=== PATIENT | male | born 1990 | race Hispanic/Latino ===

== ENCOUNTER 2019-03-10 02:51 | Emergency (ER) | payer SELFPAY ==
[2019-03-10 03:05] LABS: #Basophils 0.1 thou/uL (0.0-0.2); #Lymphocytes 1.7 thou/uL (1.20-3.40); #Monocytes 0.4 thou/uL (0.11-0.59); #Neutrophils 3.6 thou/uL (1.40-6.50); %Eosinophils 0.4 % (0.0-10.0); %Monocytes 7.1 % (0.0-10.0); %Neutrophils 62.4 % (42.0-75.0); Hemoglobin 15.8 g/dL (14.0-18.0); Mean Corpuscular HGB CONC 34.8 g/dL (32.0-36.0); Mean Corpuscular Hemoglobin 30.9 pg (27.0-31.0); Mean Corpuscular Volume 88.7 fL (78.0-98.0); Mean Platelet Volume 8.5 fL (7.4-10.4); Platelet Count 267 thou/uL (130-400); RBC Distribution Width 11.8 % (11.5-14.5); Red Blood Cell (RBC) Count 5.12 mill/uL (4.70-6.10); White Blood Cell (WBC) Count 5.8 thou/uL (4.8-10.8)
[2019-03-10] MEDS ORDERED: Ondansetron PF 4 MG/2 ML Vial ONE (03:09)
[2019-03-10 03:21] LABS: ALT (SGPT) 338 U/L (8-55); AST (SGOT) 596 U/L (5-34); Albumin 4.4 g/dL (3.5-5.0); Alkaline Phosphatase 130 U/L (40-150); Anion Gap 17 mmol/L (10-20); BUN (Urea Nitrogen) 5 mg/dL (8.9-20.6); Bilirubin, Total 0.8 mg/dL (0.2-1.2); Calc. Creatinine Clearance 0 mL/min (70-130); Calcium 9.2 mg/dL (7.8-10.44); Carbon Dioxide 25 mmol/L (22-29); Chloride 99 mmol/L (98-107); Estimated GFR-MDRD Greater than 90; Globulin 3.8 g/dL (2.4-3.5); Glucose 152 mg/dL (70-105); Lipase 46 U/L (8-78); Protein, Total 8.2 g/dL (6.0-8.3); Sodium 138 mmol/L (136-145)
[2019-03-10 03:37] LABS: Bacteria/HPF None Seen HPF (None Seen); Bilirubin Negative (Negative); Blood, Urine Trace (Negative); Clarity Clear (Clear); Glucose, Urine (Dipstick) Normal (Negative); Leukocyte Negative Leu/uL (Negative); Nitrite Negative (Negative); Protein, Urine (Dipstick) 20 mg/dL (Neg-Trace); RBC/HPF None Seen HPF (0-3); Squamous Epithelial None Seen HPF (0-3); Urobilinogen Normal mg/dL (Less than 2); WBC/HPF 0-3 HPF (0-3)
[2019-03-10] MEDS ORDERED: Potassium Chloride 20 MEQ TAB ONE (04:00)
== END 2019-03-10 04:10 | disposition home or self-care (01) ==
LOC: ERS 02:51
DX: F10.10 Alcohol abuse, uncomplicated (principal); R11.2 Nausea with vomiting, unspecified
CPT/HCPCS: 36415; 80053; 81003; 81015; 83690; 85025; 96361; 96374; J2405

== ENCOUNTER 2019-04-23 06:40 | Inpatient (IN) | payer MEDICAID, SELFPAY ==
[2019-04-23] MEDS ORDERED: Succinylcholine Chloride 20 MG/ML 10 ml SYRINGE FS ONE (06:58)
[2019-04-23] MEDS ORDERED: PROPOFOL 20 ML ONE (07:00)
[2019-04-23 07:05] LABS: PTT 29.3 SEC (22.9-36.1); Prothrombin Time 13.1 SEC (12.0-14.7)
[2019-04-23] MEDS ORDERED: Propofol 1,000 MG/100 ML VIAL IV ONE (07:05)
[2019-04-23 07:09] LABS: #Eosinphils 0.1 thou/uL (0.0-0.7); #Lymphocytes 1.8 thou/uL (1.20-3.40); #Neutrophils 6.7 thou/uL (1.40-6.50); %Basophils 0.4 % (0.0-1.0); %Eosinophils 0.8 % (0.0-10.0); %Lymphocytes 18.9 % (21.0-51.0); %Neutrophils 69.8 % (42.0-75.0); Hemoglobin 12.6 g/dL (14.0-18.0); Mean Corpuscular HGB CONC 34.6 g/dL (32.0-36.0); Mean Corpuscular Hemoglobin 31.6 pg (27.0-31.0); Mean Corpuscular Volume 91.4 fL (78.0-98.0); Mean Platelet Volume 9.5 fL (7.4-10.4); Platelet Count 125 thou/uL (130-400); RBC Distribution Width 13.7 % (11.5-14.5); White Blood Cell (WBC) Count 9.5 thou/uL (4.8-10.8)
[2019-04-23] MEDS ORDERED: Fentanyl 100 MCG/2 ML VIAL ONE ×5 (07:13→16:47)
[2019-04-23] MEDS ORDERED: Midazolam HCl 5 mg/ml Vial ONE ×2 (07:14→07:21)
[2019-04-23 07:20] LABS: ALT (SGPT) 258 U/L (8-55); AST (SGOT) 303 U/L (5-34); Acetaminophen Less than 6.0 mcg/mL (10.0-30.0); Albumin 3.3 g/dL (3.5-5.0); Alcohol Less than 10 mg/dL (Less than 10); Alkaline Phosphatase 210 U/L (40-150); Anion Gap 19 mmol/L (10-20); BUN (Urea Nitrogen) 7 mg/dL (8.9-20.6); Bilirubin, Total 9.4 mg/dL (0.2-1.2); Calc. Creatinine Clearance 0 mL/min (70-130); Calcium 8.9 mg/dL (7.8-10.44); Carbon Dioxide 21 mmol/L (22-29); Chloride 87 mmol/L (98-107); Estimated GFR-MDRD 84; Globulin 2.9 g/dL (2.4-3.5); Glucose 203 mg/dL (70-105); Protein, Total 6.2 g/dL (6.0-8.3); Salicylate Less than 8.0 mg/dL (15.0-30.0); Sodium 125 mmol/L (136-145)
[2019-04-23 07:24] LABS: Potassium 2.2 mmol/L (3.5-5.1)
[2019-04-23] MEDS ORDERED: Adacel (T-DAP) 0.5 ML SYRINGE ONE (07:26)
[2019-04-23] MEDS ORDERED: Potassium Chloride 40 MEQ in Sodium Chloride 0.9% 250 ML 250 ML IVPB SCH (07:45)
[2019-04-23 08:08] LABS: Alcohol Less than 10 mg/dL (Less than 10); Magnesium 2.1 mg/dL (1.6-2.6)
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
[2019-04-23] MEDS ORDERED: PHENYLEPHRINE-NS 100 MCG/ML 10 ML SYRINGE ONE ×4 (08:46→16:47)
[2019-04-23] MEDS ORDERED: Dexamethasone 20 MG/5 ML VIAL ONE (08:46)
[2019-04-23] MEDS ORDERED: Ondansetron PF 4 MG/2 ML Vial ONE (08:46)
[2019-04-23] MEDS ORDERED: ePHEDrine 50 MG/ML VIAL ONE (08:46)
[2019-04-23] MEDS ORDERED: PROPOFOL 200 MG/20 ML VIAL ONE (08:46)
[2019-04-23] MEDS ORDERED: Calcium Chloride 1 GM/10 ML Abboject SYRINGE ONE ×4 (08:46→16:00)
[2019-04-23] MEDS ORDERED: diphenhydrAMINE 50 MG/ML VIAL ONE (08:46)
[2019-04-23] MEDS ORDERED: Rocuronium Bromide 10 MG/ML (10ML VIAL) ONE ×3 (08:46→17:07)
[2019-04-23 08:50] LABS: Amphetamine Not Detected (NotDetected); Barbiturates Screen Not Detected (NotDetected); Benzodiazepine Screen Not Detected (NotDetected); Cocaine Metabolite Screen Not Detected (NotDetected); Medtox Control Line Valid? VALID (VALID); Medtox Reader # READER 1; Methadone Not Detected (NotDetected); Methamphetamine Not Detected (NotDetected); Opiate Screen Not Detected (NotDetected); Oxycodone Screen Not Detected (NotDetected); Phencyclidine (PCP) Not Detected (NotDetected); THC/Cannabinoid Screen Not Detected (NotDetected); Tricyclic Screen Not Detected (NotDetected)
[2019-04-23] MEDS ORDERED: Dextrose 50% Abboject 50 ML SYRINGE SLOW IVP PRN (08:55)
[2019-04-23] MEDS ORDERED: Dextrose 5% in Water 1,000 ML IV PRN (08:55)
[2019-04-23] MEDS ORDERED: hydrALAZINE 20 MG/ML VIAL SLOW IVP PRN (08:55)
[2019-04-23] MEDS ORDERED: Sodium Chloride 0.9% 1,000 ML IV SCH (09:00)
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
[2019-04-23] MEDS ORDERED: Clindamycin/D5W 900 mg/50 ml Premix Bag ONE (11:10)
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
[2019-04-23] MEDS ORDERED: Phenylephrine HCL 10 MG/ML VIAL ONE (11:20)
[2019-04-23] MEDS ORDERED: Ventilator Sedation Protocol 1 EACH FS ONE (11:30)
[2019-04-23] MEDS ORDERED: DISCONTINUE PREVIOUS NARCOTIC PAIN MEDICATIONS AND BENZODIAZEPINES FS SCH (11:32)
[2019-04-23] MEDS ORDERED: Morphine 2 MG/ML SYRINGE SLOW IVP PRN (11:32)
[2019-04-23] MEDS ORDERED: Fentanyl BOLUS 250 ML IVPB PRN (11:32)
[2019-04-23] MEDS ORDERED: Propofol BOLUS 1,000 MG/100 ML VIAL IV PRN (11:32)
[2019-04-23 12:49] LABS: Lactic Acid 4.7 mmol/L (0.5-2.2)
[2019-04-23 12:50] LABS: Actual Bicarbonate (HCO3a) 20.4 mEq/L (22-28); Base Excess (BEa) -6.5 mEq/L (-2.0 to +3.0); CO2 Tension 46.9 mmHg (35.0-45.0); Calcium, Ionized 1.08 mmol/L (1.12-1.30); Carboxyhemoglobin (COHb) 0.8 gm% (0.0-3.0); Hemoglobin (Hb) 10.6 g/dL (14.0-18.0); Potassium - ABG Lab 3.86 mmol/L (3.70-5.30); pH, Arterial 7.26 (7.35-7.45)
[2019-04-23 12:55] LABS: Puncture Site ART LINE
[2019-04-23 12:56] LABS: ALV-art Gradient 112.575 (0-20)
[2019-04-23] MEDS ORDERED: ISOVUE-370 76%-LOCM 1 ML ONE (12:56)
[2019-04-23 13:10] LABS: HBCM Index 0.04 S/CO (0-0.79); HBSAg Index 0.39 S/CO (0-0.99); Hep A IgM AB Non-Reactive (NonReactive); Hep A IgM S/CO 0.15 S/CO (0-0.79); Hep B Surf Ag Non-Reactive S/CO (NonReactive); Hep C IgG Ab Non-Reactive (NonReactive); Hep C Index 0.06 S/CO (0-0.79); Hepatitis B Core IgM Abs Non-Reactive (NonReactive)
[2019-04-23] MEDS: Famotidine/PF 20 mg/2ml Vial SLOW IVP SCH ×2 (13:14→20:40)
--- NOTE | 2019-04-23 13:16 | RAD ---
Portable supine frontal chest radiograph: 04/23/2019 COMPARISON: 04/23/2019 HISTORY: Evaluate chest following surgery FINDINGS: This study was performed at 1:04 PM and compared to the prior study performed at 7:03 AM. T here is new collapse of the right upper lobe. There is a stable endotracheal tube. Nasogastric tube has been removed. There are postoperative clips overlying the epigastric region to the right of midli ne. There is hazy increased density in the left base suggesting infiltrate, volume loss, or aspiration. Supine imaging limits assessment for pneumothorax or pleural fluid. IMPRESSION: Right upper lobe collapse.
[2019-04-23] MEDS ORDERED: Potassium Chloride 30 MEQ in Sodium Chloride 0.9% 1,000 ML IV SCH (13:45)
[2019-04-23] MEDS ORDERED: Sodium Chloride 0.9% 500 ML IV SCH (14:15)
[2019-04-23] MEDS: Sodium Chloride 0.9% 1,000 ML IV SCH ×2 (14:43→22:04)
[2019-04-23] MEDS ORDERED: Albumin 5% 250 ML ONE (15:11)
[2019-04-23] MEDS ORDERED: Sodium Bicarb 50 MEQ/50 ML VIAL ONE (15:15)
[2019-04-23 15:26] LABS: INR-International Normal Ratio 1.3; Prothrombin Time 16.5 SEC (12.0-14.7)
[2019-04-23] MEDS ORDERED: Calcium Chloride 1 GM/10 ML Abboject SYRINGE IVP SCH (15:30)
[2019-04-23 15:35] LABS: Hemoglobin 6.9 g/dL (14.0-18.0); Mean Corpuscular Hemoglobin 32.5 pg (27.0-31.0); Mean Corpuscular Volume 92.9 fL (78.0-98.0); RBC Distribution Width 13.5 % (11.5-14.5); Red Blood Cell (RBC) Count 2.12 mill/uL (4.70-6.10); White Blood Cell (WBC) Count 9.4 thou/uL (4.8-10.8)
[2019-04-23 15:41] LABS: ALT (SGPT) 124 U/L (8-55); AST (SGOT) 178 U/L (5-34); Albumin 1.6 g/dL (3.5-5.0); Alkaline Phosphatase 96 U/L (40-150); Anion Gap 18 mmol/L (10-20); BUN (Urea Nitrogen) 9 mg/dL (8.9-20.6); Bilirubin, Total 5.7 mg/dL (0.2-1.2); Calc. Creatinine Clearance 127 mL/min (70-130); Calcium 6.8 mg/dL (7.8-10.44); Carbon Dioxide 13 mmol/L (22-29); Chloride 107 mmol/L (98-107); Estimated GFR-MDRD Greater than 90; Globulin 1.3 g/dL (2.4-3.5); Glucose 189 mg/dL (70-105); Magnesium 2.1 mg/dL (1.6-2.6); Phosphorus 3.9 mg/dL (2.3-4.7); Potassium 3.7 mmol/L (3.5-5.1); Protein, Total 2.9 g/dL (6.0-8.3); Sodium 134 mmol/L (136-145)
[2019-04-23] MEDS ORDERED: Sodium Bicarb 50 MEQ/50 ML VIAL IVP SCH ×2 (15:45→20:15)
[2019-04-23] MEDS ORDERED: EPINEPHrine 1 MG/10 ML Abboject SYRINGE ONE (16:00)
[2019-04-23 16:03] LABS: Band 18 % (5-11); Lymphocytes 7 % (21-51); MDiff Complete? YES; Mean Platelet Volume 9.6 fL (7.4-10.4); Metamyelocyte 3 % (0-0); Monocytes 6 % (0-10); Neutrophil 66 % (42-75); Platelet Count 77 thou/uL (130-400); Platelet Morphology Comment Appears Decreased; Polychromasia SLIGHT = 2-3 cells (100X) (0-2/hpf); Target Cells SLIGHT = 2-5 cells (100X) (0-1/hpf)
[2019-04-23] MEDS ORDERED: Midazolam HCl 5 mg/5 ml Vial ONE (16:47)
[2019-04-23] MEDS ORDERED: Albumin 5% 0 ML ONE (16:48)
[2019-04-23] MEDS ORDERED: Midazolam HCl 2 mg/2 ml Vial ONE (17:07)
[2019-04-23] MEDS ORDERED: Phenylephrine 0.25% Nasal Spray 15 ML BOT ONE (17:14)
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
[2019-04-23] MEDS ORDERED: Heparin 10,000 UNITS/1 ML VIAL ONE (17:39)
[2019-04-23 18:55] LABS: Hemoglobin 8.3 g/dL (14.0-18.0); Mean Corpuscular HGB CONC 34.6 g/dL (32.0-36.0); Mean Corpuscular Volume 92.4 fL (78.0-98.0); Platelet Count 47 thou/uL (130-400); RBC Distribution Width 12.8 % (11.5-14.5)
[2019-04-23 19:00] LABS: INR-International Normal Ratio 1.3; PTT 32.5 SEC (22.9-36.1); Prothrombin Time 16.3 SEC (12.0-14.7)
[2019-04-23 19:22] LABS: Band 33 % (5-11); Burr Cells SLIGHT = 2-5 cells (100X) (0-1/hpf); Lymphocytes 10 % (21-51); MDiff Complete? YES; Metamyelocyte 4 % (0-0); Monocytes 8 % (0-10); Myelocyte 1 % (0-0); Neutrophil 42 % (42-75); Nucleated RBC 1 % (0); Platelet Morphology Comment Appears Decreased; Polychromasia MODERATE = 3-4 cells (100X) (0-2/hpf); Reactive Lymphocytes 2 % (0-10); Target Cells SLIGHT = 2-5 cells (100X) (0-1/hpf); Tear Drops SLIGHT = 2-5 cells (100X) (0-1/hpf); White Blood Cell (WBC) Count 8.9 thou/uL (4.8-10.8)
[2019-04-23] MEDS ORDERED: Ventilator Sedation Protocol 1 EACH FS SCH (19:30)
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
[2019-04-23 19:42] LABS: Actual Bicarbonate (HCO3a) 16.4 mEq/L (22-28); Base Excess (BEa) -10.8 mEq/L (-2.0 to +3.0); CO2 Tension 41.9 mmHg (35.0-45.0); Calcium, Ionized 1.22 mmol/L (1.12-1.30); Carboxyhemoglobin (COHb) 0.5 gm% (0.0-3.0); Hemoglobin (Hb) 9.5 g/dL (14.0-18.0); O2 Tension (PaO2) 77.9 mmHg (80.0-100.0); Potassium - ABG Lab 3.84 mmol/L (3.70-5.30)
[2019-04-23] MEDS: Propofol 1,000 MG/100 ML VIAL IV PRN (19:42)
[2019-04-23 19:47] LABS: Puncture Site line; pH, Arterial 7.21 (7.35-7.45)
[2019-04-23 19:48] LABS: ALV-art Gradient 154.925 (0-20)
--- NOTE | 2019-04-23 19:57 | RAD ---
EXAM: CHEST ONE VIEW: 04/23/19 HISTORY: Intubation. Endotracheal tube is in satisfactory location. Right central line is in place with the tip at the dis marino superior vena cava region. Right upper lobe atelectasis, complete appearing. Minimal increased br onchovascular markings in the left perihilar region. No pneumothorax. IMPRESSION: Right central line placement. Complete appearing atelectasis of the right upper lobe. Endotracheal t ube in satisfactory location. Minimal increased markings in the left perihilar region somewhat obscur ed. POS: [facility]
[2019-04-23 20:04] LABS: INR-International Normal Ratio 1.2; Prothrombin Time 14.9 SEC (12.0-14.7)
[2019-04-23 20:16] LABS: Anion Gap 16 mmol/L (10-20); BUN (Urea Nitrogen) 11 mg/dL (8.9-20.6); Calc. Creatinine Clearance 99 mL/min (70-130); Calcium 9.2 mg/dL (7.8-10.44); Carbon Dioxide 18 mmol/L (22-29); Chloride 107 mmol/L (98-107); Estimated GFR-MDRD 71; Glucose 121 mg/dL (70-105); Magnesium 1.9 mg/dL (1.6-2.6); Phosphorus 5.5 mg/dL (2.3-4.7); Potassium 3.8 mmol/L (3.5-5.1); Sodium 137 mmol/L (136-145)
[2019-04-23 20:16] LABS: #Basophils 0.1 thou/uL (0.0-0.2); #Eosinphils 0.1 thou/uL (0.0-0.7); #Lymphocytes 1.4 thou/uL (1.20-3.40); #Monocytes 1.4 thou/uL (0.11-0.59); #Neutrophils 7.3 thou/uL (1.40-6.50); %Basophils 1.4 % (0.0-1.0); %Eosinophils 0.7 % (0.0-10.0); %Lymphocytes 13.7 % (21.0-51.0); %Monocytes 13.3 % (0.0-10.0); Hemoglobin 9.5 g/dL (14.0-18.0); Mean Corpuscular HGB CONC 34.6 g/dL (32.0-36.0); Mean Corpuscular Hemoglobin 31.4 pg (27.0-31.0); Mean Corpuscular Volume 90.5 fL (78.0-98.0); Platelet Count 101 thou/uL (130-400); Platelet Morphology Comment Appears Decreased; RBC Distribution Width 12.9 % (11.5-14.5); RBC Morphology Normal; Red Blood Cell (RBC) Count 3.04 mill/uL (4.70-6.10); White Blood Cell (WBC) Count 10.2 thou/uL (4.8-10.8)
[2019-04-23 20:17] LABS: Lactic Acid 7.3 mmol/L (0.5-2.2)
[2019-04-23] MEDS ORDERED: Magnesium 2 GM/50 ML 2 GM in Premix Bag 1 BAG IVPB SCH (20:30)
[2019-04-23] MEDS ORDERED: Potassium Chloride 20 MEQ in Premix Bag 1 BAG IVPB SCH (20:30)
[2019-04-23] MEDS ORDERED: Sodium Chloride 0.45% 1,000 ML IV SCH (20:30)
[2019-04-23] MEDS: Clindamycin/D5W 900 MG in Premix Bag 1 BAG IVPB SCH (21:54)
[2019-04-23] MEDS: Lorazepam 2 MG/ML VIAL SLOW IVP PRN (22:40)
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
[2019-04-24 00:34] LABS: Actual Bicarbonate (HCO3a) 25.8 mEq/L (22-28); Base Excess (BEa) 1.2 mEq/L (-2.0 to +3.0); Calcium, Ionized 1.12 mmol/L (1.12-1.30); Carboxyhemoglobin (COHb) 1.2 gm% (0.0-3.0); Hemoglobin (Hb) 8.3 g/dL (14.0-18.0); O2 Tension (PaO2) 146.8 mmHg (80.0-100.0); pH, Arterial 7.42 (7.35-7.45)
[2019-04-24] MEDS: Insulin Regular 300 UNITS/3 ML VIAL SC PRN ×4 (00:35→18:29)
[2019-04-24 00:36] LABS: Puncture Site ALINE
[2019-04-24] MEDS: Propofol 1,000 MG/100 ML VIAL IV PRN ×6 (00:43→22:35)
[2019-04-24] MEDS ORDERED: Calcium Chloride 1 GM/10 ML Abboject SYRINGE IVP SCH (00:45)
[2019-04-24 04:45] LABS: Lactic Acid 2.7 mmol/L (0.5-2.2)
[2019-04-24 05:10] LABS: #Eosinphils 0.1 thou/uL (0.0-0.7); #Lymphocytes 1.7 thou/uL (1.20-3.40); #Monocytes 1.4 thou/uL (0.11-0.59); #Neutrophils 6.1 thou/uL (1.40-6.50); %Basophils 0.3 % (0.0-1.0); %Eosinophils 0.6 % (0.0-10.0); %Lymphocytes 18.5 % (21.0-51.0); %Monocytes 14.8 % (0.0-10.0); %Neutrophils 65.9 % (42.0-75.0); Hemoglobin 8.3 g/dL (14.0-18.0); Mean Corpuscular HGB CONC 36.5 g/dL (32.0-36.0); Mean Corpuscular Hemoglobin 32.4 pg (27.0-31.0); Mean Corpuscular Volume 88.6 fL (78.0-98.0); Mean Platelet Volume 8.2 fL (7.4-10.4); Platelet Count 138 thou/uL (130-400); Platelet Morphology Comment Appears Adequate; RBC Distribution Width 13.4 % (11.5-14.5); Red Blood Cell (RBC) Count 2.55 mill/uL (4.70-6.10); White Blood Cell (WBC) Count 9.3 thou/uL (4.8-10.8)
[2019-04-24 05:12] LABS: Phosphorus 2.6 mg/dL (2.3-4.7)
[2019-04-24 05:13] LABS: ALT (SGPT) 175 U/L (8-55); AST (SGOT) 459 U/L (5-34); Albumin 2.8 g/dL (3.5-5.0); Alkaline Phosphatase 87 U/L (40-150); Anion Gap 12 mmol/L (10-20); BUN (Urea Nitrogen) 12 mg/dL (8.9-20.6); Bilirubin, Total 5.2 mg/dL (0.2-1.2); Calc. Creatinine Clearance 111 mL/min (70-130); Carbon Dioxide 26 mmol/L (22-29); Chloride 104 mmol/L (98-107); Estimated GFR-MDRD 70; Globulin 2.1 g/dL (2.4-3.5); Glucose 163 mg/dL (70-105); Magnesium 2.3 mg/dL (1.6-2.6); Potassium 3.1 mmol/L (3.5-5.1); Protein, Total 4.9 g/dL (6.0-8.3); Sodium 139 mmol/L (136-145)
[2019-04-24] MEDS: Clindamycin/D5W 900 MG in Premix Bag 1 BAG IVPB SCH ×3 (05:13→21:51)
[2019-04-24] MEDS ORDERED: Potassium Phosphate 30 MMOL in Sodium Chloride 0.9% 250 ML 250 ML IVPB SCH (05:15)
[2019-04-24 07:43] LABS: Actual Bicarbonate (HCO3a) 26.7 mEq/L (22-28); Base Excess (BEa) 2.2 mEq/L (-2.0 to +3.0); CO2 Tension 41.1 mmHg (35.0-45.0); Carboxyhemoglobin (COHb) 1.1 gm% (0.0-3.0); Hemoglobin (Hb) 7.4 g/dL (14.0-18.0); O2 Tension (PaO2) 122.5 mmHg (80.0-100.0); pH, Arterial 7.43 (7.35-7.45)
[2019-04-24 07:53] LABS: ALV-art Gradient 111.325 (0-20); Puncture Site ART LINE'
[2019-04-24] MEDS ORDERED: Sodium Chloride 0.9% 15 ML NEB ONE (07:59)
[2019-04-24] MEDS: Famotidine/PF 20 mg/2ml Vial SLOW IVP SCH ×2 (08:52→20:00)
[2019-04-24] MEDS ORDERED: TETANUS AND DIPHTHERIA TOX/PF 0.5 ML DISP.SYRIN IM ONE (08:55)
--- NOTE | 2019-04-24 09:19 | RAD ---
Exam: Chest one view portable: HISTORY: Right upper lobe atelectasis COMPARISON: 09/12/2018 There is improved aeration in the right upper lobe with some persistent parenchymal changes evidence for some persistent partial atelectasis. Increased opacity changes in the left perihilar and infrahilar region raising concern for associated pneumonia or atelectasis. Endotracheal tube in place . Right subclavian catheter. IMPRESSION: Improving right upper lobe atelectasis. Continued short-term follow-up.
[2019-04-24] MEDS: fentaNYL Citrate/PF 2,000 MCG in Sodium Chloride 0.9% 60 ML IV SCH (11:13)
[2019-04-24 12:06] LABS: Actual Bicarbonate (HCO3a) 27.6 mEq/L (22-28); Base Excess (BEa) 2.2 mEq/L (-2.0 to +3.0); CO2 Tension 46.9 mmHg (35.0-45.0); Calcium, Ionized 1.05 mmol/L (1.12-1.30); Carboxyhemoglobin (COHb) 1.2 gm% (0.0-3.0); Potassium - ABG Lab 3.31 mmol/L (3.70-5.30); pH, Arterial 7.39 (7.35-7.45)
[2019-04-24 12:14] LABS: O2 Tension (PaO2) 54.3 mmHg (80.0-100.0)
[2019-04-24 12:15] LABS: Puncture Site RR
[2019-04-24 12:16] LABS: ALV-art Gradient 100.975 (0-20)
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
--- NOTE | 2019-04-24 18:20 | RAD ---
ABDOMEN ONE VIEW: History: NG tube placement evaluation, intubation, right upper lobe atelectasis. FINDINGS: An NG tube is in place with the tip extending into the stomach. Post-operative reynold are noted in t he abdomen. Left lower lobe parenchymal changes with some air bronchograms as well as some minimal in creased linear markings in the right lower lung zone, evidence for bilateral partial atelectasis. Rig ht subclavian catheter in place. IMPRESSION: NG tube with the tip extending into the stomach. Post-operative changes within the abdomen. Bilateral parenchymal changes, more prominent in the left base, evidence for some atelectasis. POS: [facility]
[2019-04-24] MEDS: Sodium Chloride 0.9% 1,000 ML IV SCH ×2 (19:59→20:09)
[2019-04-24] MEDS: Lorazepam 2 MG/ML VIAL SLOW IVP PRN (19:59)
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
[2019-04-25] MEDS: Insulin Regular 300 UNITS/3 ML VIAL SC PRN ×2 (00:34→05:53)
[2019-04-25] MEDS: Lorazepam 2 MG/ML VIAL SLOW IVP PRN ×2 (01:14→22:05)
[2019-04-25] MEDS: Propofol 1,000 MG/100 ML VIAL IV PRN ×2 (02:26→05:52)
[2019-04-25] MEDS: fentaNYL Citrate/PF 2,000 MCG in Sodium Chloride 0.9% 60 ML IV SCH (03:14)
[2019-04-25] MEDS: Sodium Chloride 0.9% 1,000 ML IV SCH ×3 (03:50→23:03)
[2019-04-25 04:51] LABS: ALT (SGPT) 170 U/L (8-55); AST (SGOT) 309 U/L (5-34); Albumin 2.8 g/dL (3.5-5.0); Alkaline Phosphatase 113 U/L (40-150); Anion Gap 15 mmol/L (10-20); BUN (Urea Nitrogen) 13 mg/dL (8.9-20.6); Bilirubin, Total 5.6 mg/dL (0.2-1.2); Calc. Creatinine Clearance 154 mL/min (70-130); Calcium 7.8 mg/dL (7.8-10.44); Carbon Dioxide 27 mmol/L (22-29); Chloride 103 mmol/L (98-107); Estimated GFR-MDRD Greater than 90; Globulin 2.4 g/dL (2.4-3.5); Glucose 165 mg/dL (70-105); Magnesium 2.1 mg/dL (1.6-2.6); Phosphorus 2.8 mg/dL (2.3-4.7); Potassium 3.1 mmol/L (3.5-5.1); Protein, Total 5.2 g/dL (6.0-8.3); Sodium 142 mmol/L (136-145)
[2019-04-25] MEDS ORDERED: Potassium Phosphate 30 MMOL in Sodium Chloride 0.9% 500 ML IVPB SCH (05:45)
[2019-04-25] MEDS: Clindamycin/D5W 900 MG in Premix Bag 1 BAG IVPB SCH ×2 (05:52→15:36)
[2019-04-25 05:59] LABS: Band 11 % (5-11); Hemoglobin 7.2 g/dL (14.0-18.0); Lymphocytes 20 % (21-51); MDiff Complete? YES; Mean Corpuscular HGB CONC 35.5 g/dL (32.0-36.0); Mean Corpuscular Hemoglobin 31.1 pg (27.0-31.0); Mean Corpuscular Volume 87.7 fL (78.0-98.0); Mean Platelet Volume 9.1 fL (7.4-10.4); Monocytes 17 % (0-10); Neutrophil 52 % (42-75); Nucleated RBC 3 % (0); Platelet Count 142 thou/uL (130-400); RBC Distribution Width 13.6 % (11.5-14.5); Red Blood Cell (RBC) Count 2.31 mill/uL (4.70-6.10); White Blood Cell (WBC) Count 8.4 thou/uL (4.8-10.8)
[2019-04-25 06:11] LABS: Hemoglobin A1c 5.1 % (4.0-6.0)
[2019-04-25 07:23] LABS: Actual Bicarbonate (HCO3a) 30.8 mEq/L (22-28); Base Excess (BEa) 6.2 mEq/L (-2.0 to +3.0); CO2 Tension 45.5 mmHg (35.0-45.0); Calcium, Ionized 1.02 mmol/L (1.12-1.30); Carboxyhemoglobin (COHb) 2.1 gm% (0.0-3.0); O2 Tension (PaO2) 110.8 mmHg (80.0-100.0); Potassium - ABG Lab 3.16 mmol/L (3.70-5.30); pH, Arterial 7.45 (7.35-7.45)
[2019-04-25 07:24] LABS: Puncture Site ART LINE
[2019-04-25 07:25] LABS: ALV-art Gradient 117.525 (0-20)
[2019-04-25 07:31] LABS: HIV (1/2) Antibody/Antigen Non-Reactive (NonReactive); HIV 1/2 INDEX 0.09 S/CO (<1.00)
[2019-04-25] MEDS ORDERED: Calcium Chloride 1 GM/10 ML Abboject SYRINGE IVP SCH ×2 (08:45→21:45)
[2019-04-25] MEDS ORDERED: Calcium Chloride 13.6 MEQ in Sodium Chloride 0.9% 100 ML IVPB SCH (08:45)
[2019-04-25] MEDS: Famotidine/PF 20 mg/2ml Vial SLOW IVP SCH (09:00)
--- NOTE | 2019-04-25 09:16 | RAD ---
CHEST 1 VIEW: HISTORY: Intubation. COMPARISON: 04/24/2019. FINDINGS: Life support tubes remain in place. Persistent left lower lobe and infrahilar parenchymal changes an d some linear parenchymal changes in the right lung with overall stable appearance from prior study. IMPRESSION: Stable chest. POS: [facility]
[2019-04-25] MEDS ORDERED: Morphine 2 MG/ML SYRINGE SLOW IVP PRN (09:48)
[2019-04-25] MEDS ORDERED: Morphine 4 MG/ML VIAL SLOW IVP PRN (09:48)
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
[2019-04-25] MEDS ORDERED: MD-Gastroview 120 ML BOT ONE (13:18)
--- NOTE | 2019-04-25 13:52 | PRG ---
DATE OF SERVICE: 04/24/2019 I saw Mr. Koehler in the intensive care unit as a postoperative visit. He was resting comfortably. Since we completed the surgery, he was retuned to the operating room and had an exploratory laparotomy because of clinical deterioration. This has now stabilized after repair of the liver injury. The patient was awake and responsive in the bed, but still intubated. Exam reveals no evidence of bloody pharyngeal discharge. The neck wound is intact and clean, and the neck is flat without any evidence of subcutaneous emphysema. The drain is in place and has minimal serosanguinous discharge. At this point, I discussed with the trauma surgeon, who will be managing his care. I explained to them I would like the drain to be left in place for a day or 2 longer, and then they can start with clear liquids after a swallow study is passed without any evidence of leakage. I am happy to follow along as needed. Can also contact the [place] ENT Team for any assistance. Job ID: [id number]
--- NOTE | 2019-04-25 16:00 | PRG ---
DATE OF SERVICE: 04/25/2019 SUBJECTIVE: Mr. Koehler has been extubated. He is communicating. He is not hoarse. OBJECTIVE: LUNGS: Clear to auscultation. CARDIAC: Rhythm without murmur or gallop. ABDOMEN: Soft, quiet. Surgical wound looks good. NECK: Neck wound looks good. PEDRO drainage from his neck wound is serosanguineous, 25 mL in 24 hours. VITAL SIGNS: Urine output is excellent . ASSESSMENT AND PLAN: The patient had a swallow study this morning that was equivocal and this should be repeated in probably 3 to 4 days or end of the week. He probably should be kept n.p.o. in the interim to allow adequate healing of his pharyngeal laceration repair. At this point, Dr. Warner and the Trauma Team will be managed him and seen him. His hemoglobin remained stable. Hemodynamically stable. Coagulation studies normal and basic metabolic profile is normal. Bilirubin is stable at 5.6, down from 9 on admission. Serologies negative for hepatitis. The patient has a history of alcohol abuse and probably, this is acute alcohol hepatitis. Core liver biopsies obtained intraoperatively are pending. Trauma Team and Dr. Warner can follow these up. [facility] has been ordered for a suicidal attempt, also been ordered for his hallucinations. Apparently, the patient was drinking alcohol right before the incident and this was not due to alcohol withdrawal. Job ID: [id number]
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
[2019-04-25] MEDS: Piperacillin/Tazobactam 3.375 GM in Sodium Chloride 0.9% 100 ML IVPB SCH ×2 (17:39→23:56)
[2019-04-25] MEDS ORDERED: Oxazepam 10 MG CAP PO SCH (21:00)
[2019-04-25 21:38] LABS: Base Excess (BEa) 7.9 mEq/L (-2.0 to +3.0); CO2 Tension 42.8 mmHg (35.0-45.0); Calcium, Ionized 1.07 mmol/L (1.12-1.30); Carboxyhemoglobin (COHb) 1.4 gm% (0.0-3.0); Hemoglobin (Hb) 7.4 g/dL (14.0-18.0); Potassium - ABG Lab 3.06 mmol/L (3.70-5.30); pH, Arterial 7.49 (7.35-7.45)
[2019-04-25 21:40] LABS: O2 Tension (PaO2) 50.9 mmHg (80.0-100.0)
--- NOTE | 2019-04-25 21:43 | RAD ---
PORTABLE CHEST ONE VIEW: Date: 04-25-19 Time: 9:12 p.m. History: Respiratory decompensation. FINDINGS/IMPRESSION: Comparison is made with earlier exam of 5:32 p.m. same date. The endotracheal tube has been removed. Right subclavian central line remains in place. The heart siz e is stable. There is increased opacity in the right lung since the last exam. An accompanying right effusion is seen. No pneumothorax is identified. POS: [facility]
[2019-04-25] MEDS: Pantoprazole 40 MG VIAL IVP SCH (22:06)
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
[2019-04-26] MEDS: Lorazepam 2 MG/ML VIAL SLOW IVP PRN ×2 (01:20→03:48)
[2019-04-26] MEDS ORDERED: Ventilator Sedation Protocol 1 EACH FS SCH (04:15)
[2019-04-26] MEDS ORDERED: Morphine 2 MG/ML SYRINGE SLOW IVP PRN (04:16)
[2019-04-26] MEDS ORDERED: Fentanyl BOLUS 250 ML IVPB PRN (04:16)
[2019-04-26] MEDS ORDERED: Propofol BOLUS 1,000 MG/100 ML VIAL IV PRN (04:16)
[2019-04-26] MEDS ORDERED: Lorazepam 2 MG/ML VIAL SLOW IVP PRN (04:16)
[2019-04-26] MEDS ORDERED: DISCONTINUE PREVIOUS NARCOTIC PAIN MEDICATIONS AND BENZODIAZEPINES FS SCH (04:16)
[2019-04-26] MEDS: fentaNYL Citrate/PF 2,000 MCG in Sodium Chloride 0.9% 60 ML IV SCH ×2 (04:38→17:33)
[2019-04-26] MEDS: Propofol 1,000 MG/100 ML VIAL IV PRN ×5 (04:41→23:15)
[2019-04-26] MEDS: Midazolam HCl 2 mg/2 ml Vial ONE ×2 (05:11→05:50)
[2019-04-26] MEDS: Vecuronium 10 MG VIAL ONE (05:28)
[2019-04-26] MEDS ORDERED: Midazolam HCl 2 mg/2 ml Vial SLOW IVP SCH (05:30)
[2019-04-26] MEDS ORDERED: Vecuronium Bromide 20 MG VIAL IV SCH (05:30)
[2019-04-26 05:39] LABS: ALT (SGPT) 157 U/L (8-55); AST (SGOT) 257 U/L (5-34); Albumin 2.9 g/dL (3.5-5.0); Alkaline Phosphatase 142 U/L (40-150); Anion Gap 11 mmol/L (10-20); BUN (Urea Nitrogen) 12 mg/dL (8.9-20.6); Bilirubin, Direct 5.7 mg/dL (0.1-0.3); Bilirubin, Total 7.3 mg/dL (0.2-1.2); Calc. Creatinine Clearance 149 mL/min (70-130); Calcium 8.6 mg/dL (7.8-10.44); Carbon Dioxide 32 mmol/L (22-29); Chloride 103 mmol/L (98-107); Estimated GFR-MDRD Greater than 90; Glucose 101 mg/dL (70-105); Phosphorus 3.1 mg/dL (2.3-4.7); Potassium 3.3 mmol/L (3.5-5.1); Protein, Total 5.3 g/dL (6.0-8.3); Sodium 143 mmol/L (136-145)
[2019-04-26] MEDS ORDERED: Vecuronium 10 MG VIAL IV SCH (06:00)
[2019-04-26] MEDS ORDERED: Succinylcholine Chloride 20 MG/ML 10 ml SYRINGE FS SCH (06:15)
[2019-04-26] MEDS ORDERED: PROPOFOL 200 MG/20 ML VIAL IVP SCH (06:15)
[2019-04-26] MEDS: Piperacillin/Tazobactam 3.375 GM in Sodium Chloride 0.9% 100 ML IVPB SCH ×4 (06:27→23:16)
[2019-04-26 07:01] LABS: Actual Bicarbonate (HCO3a) 30.7 mEq/L (22-28); Base Excess (BEa) 6.5 mEq/L (-2.0 to +3.0); CO2 Tension 43.3 mmHg (35.0-45.0); Calcium, Ionized 1.07 mmol/L (1.12-1.30); Carboxyhemoglobin (COHb) 1.5 gm% (0.0-3.0); O2 Tension (PaO2) 61.9 mmHg (80.0-100.0); Potassium - ABG Lab 3.08 mmol/L (3.70-5.30); pH, Arterial 7.47 (7.35-7.45)
[2019-04-26 07:09] LABS: Puncture Site LRA
[2019-04-26 07:10] LABS: ALV-art Gradient 383.075 (0-20)
[2019-04-26 08:08] LABS: Band 12 % (5-11); Hemoglobin 7.3 g/dL (14.0-18.0); Lymphocytes 26 % (21-51); MDiff Complete? YES; Mean Corpuscular HGB CONC 35.4 g/dL (32.0-36.0); Mean Corpuscular Hemoglobin 31.3 pg (27.0-31.0); Mean Corpuscular Volume 88.4 fL (78.0-98.0); Mean Platelet Volume 8.9 fL (7.4-10.4); Metamyelocyte 1 % (0-0); Monocytes 8 % (0-10); Myelocyte 2 % (0-0); Neutrophil 50 % (42-75); Nucleated RBC 4 % (0); Platelet Count 148 thou/uL (130-400); Platelet Morphology Comment Appears Adequate; Polychromasia MODERATE = 3-4 cells (100X) (0-2/hpf); RBC Distribution Width 13.5 % (11.5-14.5); Reactive Lymphocytes 1 % (0-10); Red Blood Cell (RBC) Count 2.33 mill/uL (4.70-6.10); White Blood Cell (WBC) Count 9.3 thou/uL (4.8-10.8)
[2019-04-26] MEDS ORDERED: Potassium Chloride 40 MEQ in Sodium Chloride 0.9% 250 ML 250 ML IVPB SCH (08:45)
[2019-04-26] MEDS ORDERED: Potassium ACETATE 40 MEQ in Sodium Chloride 0.9% 250 ML 250 ML IV SCH (08:45)
[2019-04-26] MEDS: Pantoprazole 40 MG VIAL IVP SCH ×2 (08:53→20:11)
[2019-04-26] MEDS: Sodium Chloride 0.9% 1,000 ML IV SCH ×3 (08:54→22:14)
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
--- NOTE | 2019-04-26 10:26 | RAD ---
KUB: DATE: 04/26/2019. COMPARISON: 04/24/2019. HISTORY: Evaluate Dobbhoff feeding tube. FINDINGS: Supine imaging is provided, limiting assessment for free intraperitoneal air and small bowel obstruct ion. Numerous cutaneous reynold are noted overlying the right abdomen. There is a Dobbhoff tube with terminating over the midline epigastric region at the L3 level, likely terminating in the region of the distal gastric body. IMPRESSION: Dobbhoff tube as above. Transcribed Date/Time: 04/26/2019 11:21 AM
--- NOTE | 2019-04-26 10:28 | RAD ---
PORTABLE CHEST: HISTORY: Respiratory distress. COMPARISON: 04/25/2019 FINDINGS: Endotracheal tube has been placed and is in satisfactory position. Right subclavian line is unchange d in position. There are persistent parenchymal changes in the right lung. Changes are slightly mor e confluent in the right mid lung field and better aeration to the changes in the right lung base. T he left lung shows some minimal parenchymal opacity in the left lower lobe. IMPRESSION: 1. Placement of endotracheal tube, which is in satisfactory position. 2. Persistent bilateral parenchymal lung changes, with some change in the appearance to the right ernesto ng changes, as described above. POS: [facility]
[2019-04-26] MEDS: Vancomycin HCl 1.25 GM in Sodium Chloride 0.9% 250 ML 300 ML IV SCH ×3 (12:04→20:08)
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
[2019-04-26] MEDS ORDERED: Metoprolol Tartrate 5 MG/5 ML VIAL IVP SCH (15:15)
[2019-04-26] MEDS ORDERED: Acetaminophen 650 MG/20.3 ML UDCUP PO PRN (17:04)
[2019-04-26] MEDS ORDERED: Adenosine 6 MG/2 ML VIAL ONE (17:57)
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
[2019-04-27] MEDS: Propofol 1,000 MG/100 ML VIAL IV PRN ×6 (02:31→20:58)
[2019-04-27] MEDS: Vancomycin HCl 1.25 GM in Sodium Chloride 0.9% 250 ML 300 ML IV SCH ×3 (04:11→20:54)
[2019-04-27 04:41] LABS: Anion Gap 12 mmol/L (10-20); BUN (Urea Nitrogen) 12 mg/dL (8.9-20.6); Calc. Creatinine Clearance 156 mL/min (70-130); Calcium 8.3 mg/dL (7.8-10.44); Carbon Dioxide 28 mmol/L (22-29); Chloride 107 mmol/L (98-107); Estimated GFR-MDRD Greater than 90; Glucose 99 mg/dL (70-105); Magnesium 2.2 mg/dL (1.6-2.6); Potassium 3.4 mmol/L (3.5-5.1); Sodium 144 mmol/L (136-145)
[2019-04-27 04:45] LABS: Hemoglobin 7.9 g/dL (14.0-18.0); Mean Corpuscular HGB CONC 35.3 g/dL (32.0-36.0); Mean Corpuscular Hemoglobin 31.5 pg (27.0-31.0); Mean Corpuscular Volume 89.1 fL (78.0-98.0); Platelet Count 155 thou/uL (130-400); RBC Distribution Width 14.4 % (11.5-14.5); Red Blood Cell (RBC) Count 2.51 mill/uL (4.70-6.10); White Blood Cell (WBC) Count 11.6 thou/uL (4.8-10.8)
[2019-04-27 04:59] LABS: Band 14 % (5-11); Eosinophils 1 % (0-10); Lymphocytes 25 % (21-51); MDiff Complete? YES; Monocytes 6 % (0-10); Neutrophil 54 % (42-75); Nucleated RBC 9 % (0)
[2019-04-27] MEDS: Piperacillin/Tazobactam 3.375 GM in Sodium Chloride 0.9% 100 ML IVPB SCH ×3 (05:46→17:31)
[2019-04-27] MEDS: fentaNYL Citrate/PF 2,000 MCG in Sodium Chloride 0.9% 60 ML IV SCH ×2 (05:46→19:13)
[2019-04-27] MEDS ORDERED: Potassium Chloride 20 MEQ in Premix Bag 1 BAG IVPB SCH (06:45)
[2019-04-27] MEDS: Sodium Chloride 0.9% 1,000 ML IV SCH ×2 (07:32→22:55)
[2019-04-27 07:38] LABS: Phosphorus 3.4 mg/dL (2.3-4.7)
[2019-04-27 08:11] LABS: Actual Bicarbonate (HCO3a) 27.8 mEq/L (22-28); Base Excess (BEa) 3.6 mEq/L (-2.0 to +3.0); CO2 Tension 40.4 mmHg (35.0-45.0); Carboxyhemoglobin (COHb) 1.4 gm% (0.0-3.0); O2 Tension (PaO2) 63.1 mmHg (80.0-100.0); Potassium - ABG Lab 3.53 mmol/L (3.70-5.30); pH, Arterial 7.46 (7.35-7.45)
[2019-04-27 08:12] LABS: Puncture Site LRA
[2019-04-27] MEDS: Pantoprazole 40 MG VIAL IVP SCH ×2 (08:26→20:55)
[2019-04-27] MEDS ORDERED: Potassium Phosphate 15 MMOL in Sodium Chloride 0.9% 250 ML 250 ML IVPB SCH (08:30)
[2019-04-27] MEDS: Ascorbic Acid 500 mg Chewable Tablet PER TUBE SCH ×2 (08:49→17:30)
[2019-04-27] MEDS: Oxazepam 10 MG CAP PO SCH ×3 (08:51→20:55)
--- NOTE | 2019-04-27 09:02 | RAD ---
EXAM: Single view of the chest HISTORY: Pulmonary insufficiency COMPARISON: 04/26/2019 FINDINGS: Single view of the chest shows a normal sized cardiomediastinal silhouette. The endotrache al tube and central venous catheter are unchanged in position. A Dobbhoff tube courses off the inferior aspect of the film. Skin reynold are seen in the upper abdomen. Airspace opacity is seen in the right thorax, unchanged. The bones are unremarkable. IMPRESSION: Right pulmonary opacity may represent an infiltrate
[2019-04-27] MEDS ORDERED: Vecuronium 10 MG VIAL ONE (10:26)
[2019-04-27] MEDS ORDERED: Sterile Water 10 ML ONE (10:27)
[2019-04-27] MEDS ORDERED: Sterile Water 0 ML ONE (10:27)
[2019-04-27] MEDS ORDERED: Vecuronium 10 MG VIAL IVP SCH (10:30)
[2019-04-27] MEDS: Vecuronium 10 MG VIAL ONE (10:30)
[2019-04-27] MEDS ORDERED: Furosemide 40 MG/4 ML VIAL SLOW IVP SCH (11:00)
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
[2019-04-27 11:57] LABS: Actual Bicarbonate (HCO3a) 26.9 mEq/L (22-28); Base Excess (BEa) 3.1 mEq/L (-2.0 to +3.0); CO2 Tension 37.8 mmHg (35.0-45.0); Calcium, Ionized 1.08 mmol/L (1.12-1.30); Carboxyhemoglobin (COHb) 0.5 gm% (0.0-3.0); Hemoglobin (Hb) 8.3 g/dL (14.0-18.0); O2 Tension (PaO2) 153.7 mmHg (80.0-100.0); Potassium - ABG Lab 3.55 mmol/L (3.70-5.30); pH, Arterial 7.47 (7.35-7.45)
[2019-04-27 11:58] LABS: Puncture Site RR
[2019-04-27] MEDS: Vecuronium Bromide 50 MG in Sodium Chloride 0.9% 250 ML 250 ML IV SCH (12:09)
[2019-04-27] MEDS: cloNIDine 0.1 MG TAB PO SCH ×2 (12:09→17:30)
[2019-04-27 15:58] LABS: Anion Gap 16 mmol/L (10-20); BUN (Urea Nitrogen) 11 mg/dL (8.9-20.6); Calc. Creatinine Clearance 160 mL/min (70-130); Calcium 8.6 mg/dL (7.8-10.44); Carbon Dioxide 26 mmol/L (22-29); Chloride 106 mmol/L (98-107); Estimated GFR-MDRD Greater than 90; Glucose 107 mg/dL (70-105); Magnesium 2.2 mg/dL (1.6-2.6); Phosphorus 3.1 mg/dL (2.3-4.7); Sodium 145 mmol/L (136-145)
[2019-04-27] MEDS ORDERED: Potassium Chloride 40 MEQ in Premix Bag 1 BAG IVPB SCH (16:45)
[2019-04-27] MEDS: Docusate 100 MG CAP PER TUBE SCH (20:55)
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
[2019-04-28] MEDS: Propofol 1,000 MG/100 ML VIAL IV PRN ×6 (01:02→23:41)
[2019-04-28] MEDS: Piperacillin/Tazobactam 3.375 GM in Sodium Chloride 0.9% 100 ML IVPB SCH ×2 (01:07→06:34)
[2019-04-28] MEDS: cloNIDine 0.1 MG TAB PO SCH ×5 (01:07→23:41)
[2019-04-28] MEDS: Vecuronium Bromide 50 MG in Sodium Chloride 0.9% 250 ML 250 ML IV SCH (02:29)
[2019-04-28] MEDS: Oxazepam 10 MG CAP PO SCH ×4 (02:32→20:30)
[2019-04-28 04:26] LABS: Anion Gap 14 mmol/L (10-20); BUN (Urea Nitrogen) 10 mg/dL (8.9-20.6); Calc. Creatinine Clearance 164 mL/min (70-130); Calcium 8.7 mg/dL (7.8-10.44); Carbon Dioxide 24 mmol/L (22-29); Chloride 107 mmol/L (98-107); Estimated GFR-MDRD Greater than 90; Glucose 93 mg/dL (70-105); Magnesium 2.4 mg/dL (1.6-2.6); Phosphorus 3.1 mg/dL (2.3-4.7); Potassium 3.3 mmol/L (3.5-5.1); Sodium 142 mmol/L (136-145)
[2019-04-28 05:53] LABS: Band 15 % (5-11); Eosinophils 1 % (0-10); Hemoglobin 8.3 g/dL (14.0-18.0); Lymphocytes 17 % (21-51); MDiff Complete? YES; Mean Corpuscular HGB CONC 35.8 g/dL (32.0-36.0); Mean Corpuscular Hemoglobin 31.9 pg (27.0-31.0); Mean Corpuscular Volume 89.1 fL (78.0-98.0); Mean Platelet Volume 9.1 fL (7.4-10.4); Metamyelocyte 1 % (0-0); Monocytes 6 % (0-10); Myelocyte 3 % (0-0); Neutrophil 57 % (42-75); Nucleated RBC 6 % (0); Platelet Count 192 thou/uL (130-400); RBC Distribution Width 14.7 % (11.5-14.5); Red Blood Cell (RBC) Count 2.59 mill/uL (4.70-6.10)
[2019-04-28] MEDS: Vancomycin HCl 1.25 GM in Sodium Chloride 0.9% 250 ML 300 ML IV SCH (06:34)
[2019-04-28] MEDS ORDERED: Potassium Phosphate 30 MMOL in Sodium Chloride 0.9% 500 ML IVPB SCH (06:45)
[2019-04-28 07:52] LABS: Actual Bicarbonate (HCO3a) 21.5 mEq/L (22-28); Base Excess (BEa) -0.7 mEq/L (-2.0 to +3.0); CO2 Tension 27.1 mmHg (35.0-45.0); Calcium, Ionized 1.12 mmol/L (1.12-1.30); Carboxyhemoglobin (COHb) 0.3 gm% (0.0-3.0); Hemoglobin (Hb) 9.5 g/dL (14.0-18.0); O2 Tension (PaO2) 161.9 mmHg (80.0-100.0); Potassium - ABG Lab 3.55 mmol/L (3.70-5.30); pH, Arterial 7.52 (7.35-7.45)
[2019-04-28 07:59] LABS: Puncture Site RR
[2019-04-28 08:00] LABS: ALV-art Gradient 160.725 (0-20)
[2019-04-28] MEDS: Docusate 100 MG CAP PER TUBE SCH ×2 (08:36→20:30)
[2019-04-28] MEDS: Ascorbic Acid 500 mg Chewable Tablet PER TUBE SCH ×2 (08:36→16:17)
[2019-04-28] MEDS: Pantoprazole 40 MG VIAL IVP SCH ×2 (08:37→20:31)
[2019-04-28] MEDS: fentaNYL Citrate/PF 2,000 MCG in Sodium Chloride 0.9% 60 ML IV SCH ×2 (08:52→21:24)
[2019-04-28] MEDS: Enoxaparin Sodium 40 MG/0.4 ML SYRINGE SC SCH (08:52)
[2019-04-28] MEDS: cefTRIAXone\\ROCEPHIN 2 GM in Sodium Chloride 0.9% 100 ML IVPB SCH (11:54)
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
[2019-04-28 18:15] LABS: Actual Bicarbonate (HCO3a) 24.4 mEq/L (22-28); Base Excess (BEa) -0.5 mEq/L (-2.0 to +3.0); CO2 Tension 41.6 mmHg (35.0-45.0); Calcium, Ionized 1.14 mmol/L (1.12-1.30); Carboxyhemoglobin (COHb) 0.6 gm% (0.0-3.0); Hemoglobin (Hb) 8.3 g/dL (14.0-18.0); O2 Tension (PaO2) 78.5 mmHg (80.0-100.0); Potassium - ABG Lab 3.78 mmol/L (3.70-5.30); pH, Arterial 7.39 (7.35-7.45)
[2019-04-28 18:18] LABS: Puncture Site RBRACH
[2019-04-28] MEDS ORDERED: Propofol 1,000 MG/100 ML VIAL IV ONE (20:22)
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
[2019-04-29] MEDS: Oxazepam 10 MG CAP PO SCH ×4 (02:22→19:36)
[2019-04-29] MEDS: Propofol 1,000 MG/100 ML VIAL IV PRN ×3 (03:01→10:12)
[2019-04-29 04:51] LABS: Phosphorus 2.7 mg/dL (2.3-4.7)
[2019-04-29 04:53] LABS: ALT (SGPT) 86 U/L (8-55); AST (SGOT) 125 U/L (5-34); Albumin 3.2 g/dL (3.5-5.0); Alkaline Phosphatase 181 U/L (40-150); Anion Gap 11 mmol/L (10-20); BUN (Urea Nitrogen) 11 mg/dL (8.9-20.6); Calc. Creatinine Clearance 171 mL/min (70-130); Calcium 8.8 mg/dL (7.8-10.44); Carbon Dioxide 26 mmol/L (22-29); Chloride 104 mmol/L (98-107); Estimated GFR-MDRD Greater than 90; Globulin 2.9 g/dL (2.4-3.5); Glucose 102 mg/dL (70-105); Magnesium 2.4 mg/dL (1.6-2.6); Potassium 3.8 mmol/L (3.5-5.1); Protein, Total 6.1 g/dL (6.0-8.3); Sodium 137 mmol/L (136-145)
[2019-04-29] MEDS: cloNIDine 0.1 MG TAB PO SCH ×4 (05:35→23:01)
[2019-04-29 07:39] LABS: Actual Bicarbonate (HCO3a) 24.3 mEq/L (22-28); Base Excess (BEa) -0.2 mEq/L (-2.0 to +3.0); CO2 Tension 38.9 mmHg (35.0-45.0); Calcium, Ionized 1.15 mmol/L (1.12-1.30); Carboxyhemoglobin (COHb) 0.4 gm% (0.0-3.0); Hemoglobin (Hb) 8.5 g/dL (14.0-18.0); O2 Tension (PaO2) 81.4 mmHg (80.0-100.0); Potassium - ABG Lab 3.64 mmol/L (3.70-5.30); pH, Arterial 7.41 (7.35-7.45)
[2019-04-29 07:54] LABS: Puncture Site RBA
[2019-04-29 07:55] LABS: ALV-art Gradient 155.175 (0-20)
[2019-04-29] MEDS: Pantoprazole 40 MG VIAL IVP SCH (09:00)
[2019-04-29] MEDS: Ascorbic Acid 500 mg Chewable Tablet PER TUBE SCH ×2 (09:00→16:39)
[2019-04-29] MEDS: Enoxaparin Sodium 40 MG/0.4 ML SYRINGE SC SCH (09:00)
[2019-04-29] MEDS: Docusate 100 MG CAP PER TUBE SCH ×2 (09:00→19:36)
--- NOTE | 2019-04-29 09:06 | RAD ---
KUB: INDICATION: Dobbhoff tube placement. COMPARISON: Prior exam dated 04/26/2019. FINDINGS: The Dobbhoff feeding tube has now been retracted and now resides in the region of the fundus of the s tomach. Surgical reynold are again seen overlying the midline. The bowel gas pattern is nonspecific . Lung bases are clear. IMPRESSION: Dobbhoff feeding tube. POS: OFF
[2019-04-29] MEDS: fentaNYL Citrate/PF 2,000 MCG in Sodium Chloride 0.9% 60 ML IV SCH (09:48)
[2019-04-29 10:46] LABS: Actual Bicarbonate (HCO3a) 13.6 mEq/L (22-28); Analyzer IN Cardio OR; Base Excess (BEa) -14.8 mEq/L (-2.0 to +3.0); CO2 Tension 42.2 mmHg (35.0-45.0); Calcium, Ionized 1.18 mmol/L (1.12-1.30); Carboxyhemoglobin (COHb) 0.3 gm% (0.0-3.0); Hemoglobin (Hb) 9.3 g/dL (14.0-18.0); O2 Tension (PaO2) 348.7 mmHg (80.0-100.0)
[2019-04-29 10:47] LABS: Actual Bicarbonate (HCO3a) 21.4 mEq/L (22-28); Analyzer IN Cardio OR; Base Excess (BEa) -3.6 mEq/L (-2.0 to +3.0); CO2 Tension 38.1 mmHg (35.0-45.0); Calcium, Ionized 1.09 mmol/L (1.12-1.30); Carboxyhemoglobin (COHb) 0.2 gm% (0.0-3.0); Hemoglobin (Hb) 9.3 g/dL (14.0-18.0); O2 Tension (PaO2) 400.6 mmHg (80.0-100.0); Potassium - ABG Lab 2.97 mmol/L (3.70-5.30); pH, Arterial 7.37 (7.35-7.45)
[2019-04-29 10:48] LABS: Puncture Site ALINE
[2019-04-29 10:48] LABS: Puncture Site ALINE; pH, Arterial 7.13 (7.35-7.45)
[2019-04-29] MEDS: cefTRIAXone\\ROCEPHIN 2 GM in Sodium Chloride 0.9% 100 ML IVPB SCH (11:36)
--- NOTE | 2019-04-29 11:45 | RAD ---
ABDOMEN 1 VIEW: Date: 04/29/19 INDICATION: Dobbhoff tube placement. COMPARISON: Prior exam performed earlier at 0515 hours. IMPRESSION: Feeding tube has been directed to the region of the gastric antrum. Bowel gas pattern is unchanged. N o acute osseous abnormality is evident. POS: OFF
[2019-04-29 12:39] LABS: Analyzer IN Cardio OR; Calcium, Ionized 0.99 mmol/L (1.12-1.30); Carboxyhemoglobin (COHb) 0.3 gm% (0.0-3.0); Hemoglobin (Hb) 10.5 g/dL (14.0-18.0); O2 Tension (PaO2) 480.5 mmHg (80.0-100.0); Potassium - ABG Lab 3.14 mmol/L (3.70-5.30); Puncture Site ALINE; pH, Arterial 7.37 (7.35-7.45)
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
[2019-04-29] MEDS ORDERED: traMADol HCl 50 MG TAB PO PRN ×2 (15:17)
[2019-04-29] MEDS: Morphine 4 MG/ML VIAL SLOW IVP PRN (19:25)
[2019-04-29] MEDS: Sulfameth/Trimethoprim DS 800-160mg TAB PO SCH (19:36)
[2019-04-30] MEDS ORDERED: Fentanyl 100 MCG/2 ML VIAL ONE (00:39)
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
[2019-04-30] MEDS: Morphine 4 MG/ML VIAL SLOW IVP PRN (02:45)
[2019-04-30] MEDS: cloNIDine 0.1 MG TAB PO SCH ×3 (05:52→18:07)
[2019-04-30] MEDS: Folic Acid 1 MG TAB PO SCH (10:31)
[2019-04-30] MEDS: Oxazepam 10 MG CAP PO SCH ×3 (10:31→22:19)
[2019-04-30] MEDS: Enoxaparin Sodium 40 MG/0.4 ML SYRINGE SC SCH (10:31)
[2019-04-30] MEDS: Thiamine 100 MG TAB PO SCH (10:31)
[2019-04-30] MEDS: Ascorbic Acid 500 mg Chewable Tablet PER TUBE SCH ×2 (10:31→18:08)
[2019-04-30] MEDS: Sulfameth/Trimethoprim DS 800-160mg TAB PO SCH ×2 (10:31→22:19)
[2019-04-30] MEDS: Docusate 100 MG CAP PER TUBE SCH ×2 (10:32→22:19)
[2019-04-30] MEDS: Pantoprazole 40 MG VIAL IVP SCH (10:32)
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
[2019-04-30] MEDS ORDERED: Ketorolac Tromethamine 30 MG/ML VIAL IVP PRN (18:35)
[2019-04-30] MEDS: Sodium Chloride 0.9% 1,000 ML IV SCH (22:19)
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
[2019-05-01] MEDS: cloNIDine 0.1 MG TAB PO SCH ×4 (00:50→17:54)
[2019-05-01] MEDS: Sodium Chloride 0.9% 1,000 ML IV SCH ×3 (05:54→23:37)
[2019-05-01 07:01] LABS: ALT (SGPT) 86 U/L (8-55); AST (SGOT) 112 U/L (5-34); Albumin 3.7 g/dL (3.5-5.0); Alkaline Phosphatase 183 U/L (40-150); Anion Gap 13 mmol/L (10-20); BUN (Urea Nitrogen) 11 mg/dL (8.9-20.6); Bilirubin, Total 3.9 mg/dL (0.2-1.2); Calc. Creatinine Clearance 154 mL/min (70-130); Calcium 8.8 mg/dL (7.8-10.44); Carbon Dioxide 22 mmol/L (22-29); Chloride 107 mmol/L (98-107); Estimated GFR-MDRD Greater than 90; Glucose 110 mg/dL (70-105); Magnesium 2.6 mg/dL (1.6-2.6); Phosphorus 2.9 mg/dL (2.3-4.7); Potassium 3.7 mmol/L (3.5-5.1); Protein, Total 6.8 g/dL (6.0-8.3); Sodium 138 mmol/L (136-145)
[2019-05-01] MEDS: Pantoprazole 40 MG VIAL IVP SCH (08:57)
[2019-05-01] MEDS: Enoxaparin Sodium 40 MG/0.4 ML SYRINGE SC SCH (08:57)
--- NOTE | 2019-05-01 10:07 | RAD ---
XR Ba Swallow W/Speech Therap History: Dysphagia, oral pharyngeal phase R 13.12. Feeding difficulties R 63.3 Comparison: Appearance fall esophagram April 25, 2019 Findings: The patient was given pudding consistency contrast by the speech pathologist. Pooling of co ntrast in the upper esophagus with spillage into the trachea. The exam was terminated. Impression: Silent aspiration with pudding contrast material. There is pooling of contrast in the upp er esophagus which may be sequela of increased upper esophageal sphincter tone. Please see speech pathology report for further details. Fluoroscopy time: 0.7 minutes
[2019-05-01] MEDS: Oxazepam 10 MG CAP PO SCH ×3 (12:02→20:52)
[2019-05-01] MEDS: Ascorbic Acid 500 mg Chewable Tablet PER TUBE SCH ×2 (12:11→15:18)
[2019-05-01] MEDS: Folic Acid 1 MG TAB PO SCH (12:11)
[2019-05-01] MEDS: Docusate 100 MG CAP PER TUBE SCH ×2 (12:11→20:52)
[2019-05-01] MEDS: Thiamine 100 MG TAB PO SCH (12:11)
[2019-05-01] MEDS: Sulfameth/Trimethoprim DS 800-160mg TAB PO SCH ×2 (15:16→20:52)
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
[2019-05-02] MEDS: cloNIDine 0.1 MG TAB PO SCH ×4 (00:30→18:39)
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
[2019-05-02] MEDS: Sodium Chloride 0.9% 1,000 ML IV SCH ×2 (06:27→18:33)
[2019-05-02] MEDS: Ascorbic Acid 500 mg Chewable Tablet PER TUBE SCH ×2 (09:26→18:35)
[2019-05-02] MEDS: Oxazepam 10 MG CAP PO SCH ×3 (09:26→21:03)
[2019-05-02] MEDS: Sulfameth/Trimethoprim DS 800-160mg TAB PO SCH ×2 (09:26→21:03)
[2019-05-02] MEDS: Docusate 100 MG CAP PER TUBE SCH ×2 (09:27→21:03)
[2019-05-02] MEDS: Enoxaparin Sodium 40 MG/0.4 ML SYRINGE SC SCH (09:27)
[2019-05-02] MEDS: Thiamine 100 MG TAB PO SCH (09:27)
[2019-05-02] MEDS: Pantoprazole 40 MG VIAL IVP SCH (09:27)
[2019-05-02] MEDS: Folic Acid 1 MG TAB PO SCH (09:27)
[2019-05-02 10:21] VITALS: BMI 26.8
[2019-05-02] MEDS ORDERED: Scopolamine 1.5 mg/72 hour Patch TD SCH ×2 (13:00→21:00)
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
[2019-05-03] MEDS: cloNIDine 0.1 MG TAB PO SCH ×5 (00:20→23:51)
[2019-05-03] MEDS: Sodium Chloride 0.9% 1,000 ML IV SCH ×2 (04:06→16:42)
[2019-05-03] MEDS ORDERED: traMADol HCl 50 MG TAB PO PRN (09:00)
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
[2019-05-03] MEDS: Enoxaparin Sodium 40 MG/0.4 ML SYRINGE SC SCH (10:41)
[2019-05-03] MEDS: Oxazepam 10 MG CAP PO SCH ×3 (10:41→21:04)
[2019-05-03] MEDS: Ascorbic Acid 500 mg Chewable Tablet PER TUBE SCH ×2 (10:41→16:17)
[2019-05-03] MEDS: Thiamine 100 MG TAB PO SCH (10:41)
[2019-05-03] MEDS: Sulfameth/Trimethoprim DS 800-160mg TAB PO SCH ×2 (10:41→21:04)
[2019-05-03] MEDS: Folic Acid 1 MG TAB PO SCH (10:41)
[2019-05-03] MEDS: Docusate 100 MG CAP PER TUBE SCH ×2 (10:42→21:03)
[2019-05-03] MEDS: Pantoprazole 40 MG VIAL IVP SCH (10:42)
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
[2019-05-03] MEDS ORDERED: Acetaminophen 325 MG TAB PO PRN (17:14)
--- NOTE | 2019-05-03 22:33 | PRG ---
DATE OF SERVICE: 05/03/2019 SUBJECTIVE: The patient remains on the surgical floor. The patient is awake, alert, sitting up in the chair, in good spirits. The patient continues to have a 24-hour sitter. The patient voices no complaints at this time. The patient states that he is able to tolerate a regular diet. OBJECTIVE: VITAL SIGNS: Stable. Remains afebrile. RESPIRATORY: Bilateral breath sounds clear. Equal chest rise and fall, no respiratory distress. ASSESSMENT: 1. Status post self-inflicted neck and abdominal laceration for suicide attempt. 2. Status post exploration of left neck wound and repair of hypopharyngeal laceration. 3. Status post exploratory laparotomy and hepatorrhaphy. 4. Resolving acute aspiration pneumonia. 5. Resolving acute respiratory distress syndrome. PLAN: Continue supportive care. Continue regular diet as tolerated. Continue suicide precautions. Pending placement to [facility]. Job ID: [id number] MTDD
[2019-05-04] MEDS: cloNIDine 0.1 MG TAB PO SCH ×4 (06:04→23:37)
[2019-05-04] MEDS: Ferrous Sulfate 325 MG TAB PO SCH ×2 (08:30→16:31)
[2019-05-04] MEDS: Ascorbic Acid 500 mg Chewable Tablet PER TUBE SCH ×2 (08:30→16:31)
[2019-05-04] MEDS: Sulfameth/Trimethoprim DS 800-160mg TAB PO SCH ×2 (08:30→20:06)
[2019-05-04] MEDS: Oxazepam 10 MG CAP PO SCH ×3 (08:30→20:07)
[2019-05-04] MEDS: Enoxaparin Sodium 40 MG/0.4 ML SYRINGE SC SCH (08:31)
[2019-05-04] MEDS: Folic Acid 1 MG TAB PO SCH (08:31)
[2019-05-04] MEDS: Docusate 100 MG CAP PER TUBE SCH ×2 (08:31→20:06)
[2019-05-04] MEDS: Thiamine 100 MG TAB PO SCH (08:31)
[2019-05-04] MEDS: Citalopram 20 MG TAB PO SCH (08:31)
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
--- NOTE | 2019-05-04 22:50 | PRG ---
DATE OF SERVICE: 05/04/2019 SUBJECTIVE: The patient remains on the surgical floor with a 24-hour sitter. The patient is awake, alert, sitting up in the chair. The patient voices no complaints at this time. The patient states that he continues to tolerate a regular diet and that his pain is well controlled. OBJECTIVE: VITAL SIGNS: Stable, remains afebrile. GENERAL: The patient resting comfortably in chair. LUNGS: Clear bilateral, no wheezing, rales or rhonchi; good inspiratory and expiratory effort. HEART: Regular rate and regular rhythm. ABDOMEN: Soft, nontender, and nondistended. ASSESSMENT: 1. Status post self-inflicted neck and abdominal lacerations for suicidal attempt. 2. Status post exploration of left neck wound and repair of hypopharyngeal laceration. 3. Status post exploratory laparotomy and hepatorrhaphy. 4. Resolved acute respiratory distress syndrome. PLAN: Continue supportive care. Continue 24-hour sitter and suicidal watch. Continue regular diet as tolerated. The patient is pending placement to [facility] for inpatient psychiatric treatment. The plan has been discussed with the patient who agrees. Job ID: [id number]
[2019-05-05] MEDS: cloNIDine 0.1 MG TAB PO SCH ×3 (06:19→16:59)
[2019-05-05] MEDS: Enoxaparin Sodium 40 MG/0.4 ML SYRINGE SC SCH (07:55)
[2019-05-05] MEDS: Folic Acid 1 MG TAB PO SCH (07:55)
[2019-05-05] MEDS: Ferrous Sulfate 325 MG TAB PO SCH ×2 (07:55→17:25)
[2019-05-05] MEDS: Thiamine 100 MG TAB PO SCH (07:55)
[2019-05-05] MEDS: Ascorbic Acid 500 mg Chewable Tablet PER TUBE SCH ×2 (07:55→17:24)
[2019-05-05] MEDS: Sulfameth/Trimethoprim DS 800-160mg TAB PO SCH ×2 (07:55→20:56)
[2019-05-05] MEDS: Oxazepam 10 MG CAP PO SCH ×3 (07:56→20:56)
[2019-05-05] MEDS: Docusate 100 MG CAP PER TUBE SCH ×2 (07:56→20:55)
[2019-05-05] MEDS: Citalopram 20 MG TAB PO SCH (07:56)
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
--- NOTE | 2019-05-05 21:22 | PRG ---
DATE OF SERVICE: 05/05/2019 SUBJECTIVE: The patient remains on the surgical floor with a 24-hour sitter. The patient is awake, alert, sitting up in the chair. The patient has an increasing cough and not wanting to eat currently. The patient denies any abdominal pain, nausea, or vomiting. The patient without any drooling and able to maintain secretions. Speech therapy continues to see patient. OBJECTIVE: VITAL SIGNS: Stable. The patient remains afebrile, mildly tachycardic at 106. GENERAL: The patient is awake, alert, sitting up in chair with consistent coughing, nonproductive. RESPIRATORY: Bilateral breath sounds clear in the upper lobes, diminished breath sounds in lower lobes with mild rhonchi, good inspiratory and expiratory effort , no respiratory distress. HEART: Regular rate, regular rhythm. Mildly tachycardic. ABDOMEN: Soft, nontender, nondistended, midline incision with inferior aspect dehiscence approximately 0.5 cm, no redness or oozing. EXTREMITIES: No pedal edema, moves all extremities, distal pulses intact. ASSESSMENT: 1. Status post self-inflicted neck and abdominal lacerations for suicidal attempts. 2. Status post exploration of left neck wound and repair of hypopharyngeal laceration. 3. Status post exploratory laparotomy and hepatorrhaphy. 4. Resolved acute respiratory distress syndrome. 5. Cough, possible aspiration. PLAN: Continue supportive care. Continue to have a 24-hour sitter and suicidal watch. We will obtain a chest x-ray as the patient has a constant cough and diminished breath sounds in the bases. We will also get a DuoNeb. We will also obtain a.m. labs. Continue to have speech therapy see patient. We will close inferior aspect wound dehiscence with Steri-Strips. The patient is pending placement to [facility] for inpatient psychiatric treatment. The plan was discussed with the patient, who agrees. Job ID: [id number] MTDD
--- NOTE | 2019-05-05 22:21 | RAD ---
CHEST ONE VIEW: 05/05/19 COMPARISON: 04/27/19. HISTORY: Cough. Evaluate for aspiration. FINDINGS: When compared to the previous exam, there is improved aeration of the lung parenchyma. Linear opaciti es are still noted in the right mid and lower lung as well as the left lung base. Areas of scar or at electasis are favored. Infiltrate cannot be entirely excluded. Lung volumes are diminished. There is no pleural effusion. Normal cardiac silhouette. No pneumothorax or osseous abnormalities. IMPRESSION: Improved aeration of the lung parenchyma. Residual linear opacities do remain. Continued surveillance is recommended. POS: PPP
[2019-05-06] MEDS: cloNIDine 0.1 MG TAB PO SCH ×5 (00:27→23:32)
[2019-05-06 05:04] LABS: #Basophils 0.1 thou/uL (0.0-0.2); #Eosinphils 0.1 thou/uL (0.0-0.7); #Lymphocytes 1.3 thou/uL (1.20-3.40); #Monocytes 0.6 thou/uL (0.11-0.59); #Neutrophils 4.1 thou/uL (1.40-6.50); %Basophils 1.8 % (0.0-1.0); %Eosinophils 1.7 % (0.0-10.0); %Lymphocytes 20.8 % (21.0-51.0); %Monocytes 10.2 % (0.0-10.0); %Neutrophils 65.4 % (42.0-75.0); Hemoglobin 9.2 g/dL (14.0-18.0); Mean Corpuscular HGB CONC 34.4 g/dL (32.0-36.0); Mean Corpuscular Hemoglobin 31.8 pg (27.0-31.0); Mean Corpuscular Volume 92.5 fL (78.0-98.0); Mean Platelet Volume 8.7 fL (7.4-10.4); Platelet Count 612 thou/uL (130-400); RBC Distribution Width 15.4 % (11.5-14.5); Red Blood Cell (RBC) Count 2.88 mill/uL (4.70-6.10); White Blood Cell (WBC) Count 6.2 thou/uL (4.8-10.8)
[2019-05-06 05:23] LABS: ALT (SGPT) 107 U/L (8-55); AST (SGOT) 76 U/L (5-34); Albumin 4.2 g/dL (3.5-5.0); Alkaline Phosphatase 143 U/L (40-150); Anion Gap 12 mmol/L (10-20); BUN (Urea Nitrogen) 13 mg/dL (8.9-20.6); Bilirubin, Total 2.2 mg/dL (0.2-1.2); Calc. Creatinine Clearance 150 mL/min (70-130); Calcium 9.5 mg/dL (7.8-10.44); Carbon Dioxide 23 mmol/L (22-29); Chloride 102 mmol/L (98-107); Estimated GFR-MDRD Greater than 90; Globulin 3.2 g/dL (2.4-3.5); Glucose 98 mg/dL (70-105); Potassium 3.6 mmol/L (3.5-5.1); Protein, Total 7.4 g/dL (6.0-8.3); Sodium 133 mmol/L (136-145)
[2019-05-06] MEDS: Ferrous Sulfate 325 MG TAB PO SCH ×2 (08:52→16:30)
[2019-05-06] MEDS: Ascorbic Acid 500 mg Chewable Tablet PER TUBE SCH ×2 (08:52→16:30)
[2019-05-06] MEDS: Sulfameth/Trimethoprim DS 800-160mg TAB PO SCH ×2 (08:52→21:11)
[2019-05-06] MEDS: Citalopram 20 MG TAB PO SCH (08:52)
[2019-05-06] MEDS: Folic Acid 1 MG TAB PO SCH (08:52)
[2019-05-06] MEDS: Oxazepam 10 MG CAP PO SCH ×3 (08:52→21:11)
[2019-05-06] MEDS: Docusate 100 MG CAP PER TUBE SCH ×2 (08:52→21:11)
[2019-05-06] MEDS: Thiamine 100 MG TAB PO SCH (08:52)
[2019-05-06] MEDS: Enoxaparin Sodium 40 MG/0.4 ML SYRINGE SC SCH (08:54)
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
[2019-05-07] MEDS: cloNIDine 0.1 MG TAB PO SCH ×4 (05:45→23:56)
[2019-05-07] MEDS: Thiamine 100 MG TAB PO SCH (09:02)
[2019-05-07] MEDS: Ferrous Sulfate 325 MG TAB PO SCH ×2 (09:02→17:00)
[2019-05-07] MEDS: Oxazepam 10 MG CAP PO SCH ×3 (09:02→20:15)
[2019-05-07] MEDS: Ascorbic Acid 500 mg Chewable Tablet PER TUBE SCH ×2 (09:03→17:00)
[2019-05-07] MEDS: Docusate 100 MG CAP PER TUBE SCH ×2 (09:03→20:15)
[2019-05-07] MEDS: Enoxaparin Sodium 40 MG/0.4 ML SYRINGE SC SCH (09:03)
[2019-05-07] MEDS: Folic Acid 1 MG TAB PO SCH (09:03)
[2019-05-07] MEDS: Citalopram 20 MG TAB PO SCH (09:03)
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
[2019-05-08] MEDS: cloNIDine 0.1 MG TAB PO SCH ×4 (05:46→18:08)
[2019-05-08] MEDS: Citalopram 20 MG TAB PO SCH (08:25)
[2019-05-08] MEDS: Ferrous Sulfate 325 MG TAB PO SCH ×2 (08:25→18:04)
[2019-05-08] MEDS: Docusate 100 MG CAP PER TUBE SCH ×2 (08:25→21:03)
[2019-05-08] MEDS: Ascorbic Acid 500 mg Chewable Tablet PER TUBE SCH ×2 (08:26→18:04)
[2019-05-08] MEDS: Folic Acid 1 MG TAB PO SCH (08:26)
[2019-05-08] MEDS: Oxazepam 10 MG CAP PO SCH ×3 (08:26→21:03)
[2019-05-08] MEDS: Enoxaparin Sodium 40 MG/0.4 ML SYRINGE SC SCH (08:26)
[2019-05-08] MEDS: Thiamine 100 MG TAB PO SCH (08:26)
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
[2019-05-09] MEDS: cloNIDine 0.1 MG TAB PO SCH ×4 (05:43→17:54)
[2019-05-09] MEDS: Folic Acid 1 MG TAB PO SCH (08:49)
[2019-05-09] MEDS: Ascorbic Acid 500 mg Chewable Tablet PER TUBE SCH ×2 (08:49→17:22)
[2019-05-09] MEDS: Ferrous Sulfate 325 MG TAB PO SCH ×2 (08:49→17:23)
[2019-05-09] MEDS: Citalopram 20 MG TAB PO SCH (08:49)
[2019-05-09] MEDS: Docusate 100 MG CAP PER TUBE SCH ×2 (08:50→20:33)
[2019-05-09] MEDS: Enoxaparin Sodium 40 MG/0.4 ML SYRINGE SC SCH (08:50)
[2019-05-09] MEDS: Thiamine 100 MG TAB PO SCH (08:50)
[2019-05-09] MEDS: Oxazepam 10 MG CAP PO SCH ×3 (08:52→20:33)
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
[2019-05-09 20:46] VITALS: BP 123/80; TEMP 98.2
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
== END 2019-05-09 20:55 | disposition short-term general hospital (02) | DRG 420 ==
LOC: ERS 06:40 → SDC 07:30 → CCU 08:00 → SURG B 04-30 11:50
PROVIDERS: ADMIT Specialist; ATTEND Specialist
PROC: 0FB00ZX Excision of Liver, Open Approach, Diagnostic (ICD-10-PCS; principal; 2019-04-23)
PROC: 0W960ZZ Drainage of Neck, Open Approach (ICD-10-PCS; 2019-04-23)
PROC: 0W9G0ZZ Drainage of Peritoneal Cavity, Open Approach (ICD-10-PCS; 2019-04-23)
PROC: 0KQ30ZZ Repair Left Neck Muscle, Open Approach (ICD-10-PCS; 2019-04-23)
PROC: 0CQM0ZZ Repair Pharynx, Open Approach (ICD-10-PCS; 2019-04-23)
PROC: 0W9G0ZZ Drainage of Peritoneal Cavity, Open Approach (ICD-10-PCS; 2019-04-23)
PROC: 0HQEXZZ Repair Left Lower Arm Skin, External Approach (ICD-10-PCS; 2019-04-23)
PROC: 0W3G0ZZ Control Bleeding in Peritoneal Cavity, Open Approach (ICD-10-PCS; 2019-04-23)
PROC: 5A1945Z Respiratory Ventilation, 24-96 Consecutive Hours (ICD-10-PCS; 2019-04-23)
PROC: 0BH17EZ Insertion of Endotracheal Airway into Trachea, Via Natural or Artificial Opening (ICD-10-PCS; 2019-04-23)
PROC: 0CJS8ZZ Inspection of Larynx, Via Natural or Artificial Opening Endoscopic (ICD-10-PCS; 2019-04-23)
PROC: 30233L1 Transfusion of Nonautologous Fresh Plasma into Peripheral Vein, Percutaneous Approach (ICD-10-PCS; 2019-04-23)
PROC: 30233N1 Transfusion of Nonautologous Red Blood Cells into Peripheral Vein, Percutaneous Approach (ICD-10-PCS; 2019-04-23)
PROC: 30233R1 Transfusion of Nonautologous Platelets into Peripheral Vein, Percutaneous Approach (ICD-10-PCS; 2019-04-23)
PROC: 30233M1 Transfusion of Nonautologous Plasma Cryoprecipitate into Peripheral Vein, Percutaneous Approach (ICD-10-PCS; 2019-04-23)
PROC: 30233K1 Transfusion of Nonautologous Frozen Plasma into Peripheral Vein, Percutaneous Approach (ICD-10-PCS; 2019-04-23)
PROC: 5A1945Z Respiratory Ventilation, 24-96 Consecutive Hours (ICD-10-PCS; 2019-04-25)
PROC: 0BJ08ZZ Inspection of Tracheobronchial Tree, Via Natural or Artificial Opening Endoscopic (ICD-10-PCS; 2019-04-26)
PROC: 0BJ08ZZ Inspection of Tracheobronchial Tree, Via Natural or Artificial Opening Endoscopic (ICD-10-PCS; 2019-04-27)
DX: S36.113A Laceration of liver, unspecified degree, initial encounter (principal); R57.8 Other shock; J69.0 Pneumonitis due to inhalation of food and vomit; K72.00 Acute and subacute hepatic failure without coma; J96.01 Acute respiratory failure with hypoxia; B17.9 Acute viral hepatitis, unspecified; S11.21XA Laceration without foreign body of pharynx and cervical esophagus, initial encounter; R44.3 Hallucinations, unspecified; D62 Acute posthemorrhagic anemia; E87.2 Acidosis; F10.239 Alcohol dependence with withdrawal, unspecified; J98.11 Atelectasis; S21.119A Laceration without foreign body of unspecified front wall of thorax without penetration into thoracic cavity, initial encounter; S36.899A Unspecified injury of other intra-abdominal organs, initial encounter; S61.512A Laceration without foreign body of left wrist, initial encounter; S31.112A Laceration without foreign body of abdominal wall, epigastric region without penetration into peritoneal cavity, initial encounter; E87.6 Hypokalemia; E83.42 Hypomagnesemia; E83.39 Other disorders of phosphorus metabolism; N28.9 Disorder of kidney and ureter, unspecified; B95.61 Methicillin susceptible Staphylococcus aureus infection as the cause of diseases classified elsewhere; R00.0 Tachycardia, unspecified; J98.09 Other diseases of bronchus, not elsewhere classified; R13.10 Dysphagia, unspecified; Y92.000 Kitchen of unspecified non-institutional (private) residence as the place of occurrence of the external cause; X78.9XXA Intentional self-harm by unspecified sharp object, initial encounter
CPT/HCPCS: 31500; 36415; 36416; 36430; 43752; 51702; 70450; 70498; 71045; 71046; 74018; 74220; 74230; 80048; 80053; 80074; 80076; 80202; 80306; 80307; 82140; 82150; 82533; 82805; 83036; 83605; 83690; 83735; 83880; 84100; 84311; 85007; 85025; 85027; 85610; 85730; 86850; 86900; 86901; 87070; 87077; 87086; 87186; 87205; 87389; 88307; 88313; 90471; 90715; 94002; 94003; 94640; 94660; 96365; 96375; 96376; A4218; C9113; G0390; J0131; J0153; J0171; J0696; J1100; J1200; J1644; J1650; J1815; J1940; J2060; J2250; J2270; J2370; J2405; J2543; J2704; J3010; J3370; J3411; J3475; J3480; J3490; J7050; J7620; P9012; P9016; P9035; P9045; P9048; P9059; Q9963; Q9966; S0028

== ENCOUNTER 2019-08-02 21:04 | Inpatient (IN) | payer MEDICAID, SELFPAY ==
[2019-08-02] MEDS ORDERED: Diazepam 10 MG/2 ML SYRINGE ONE ×2 (21:33→22:19)
[2019-08-02 21:53] LABS: #Lymphocytes 0.7 thou/uL (1.20-3.40); #Monocytes 0.5 thou/uL (0.11-0.59); #Neutrophils 7.1 thou/uL (1.40-6.50); %Basophils 0.3 % (0.0-1.0); %Eosinophils 0.1 % (0.0-10.0); %Lymphocytes 8.9 % (21.0-51.0); %Monocytes 6.2 % (0.0-10.0); %Neutrophils 84.6 % (42.0-75.0); Hemoglobin 14.3 g/dL (14.0-18.0); Mean Corpuscular HGB CONC 33.4 g/dL (32.0-36.0); Mean Corpuscular Volume 77.9 fL (78.0-98.0); Mean Platelet Volume 11.1 fL (7.4-10.4); Platelet Count 123 thou/uL (130-400); RBC Distribution Width 14.9 % (11.5-14.5); Red Blood Cell (RBC) Count 5.48 mill/uL (4.70-6.10); White Blood Cell (WBC) Count 8.4 thou/uL (4.8-10.8)
--- NOTE | 2019-08-02 22:00 | CT ---
HEAD CT WITHOUT CONTRAST: 08/02/19 COMPARISON: None. HISTORY: Hallucinations, altered mental status. TECHNIQUE: Axial CT imaging at 5 mm intervals from vertex through skull base without contrast. FINDINGS: The visualized paranasal sinuses/mastoid air cells are well aerated. No displaced calvarial fracture. No intracranial hemorrhage, midline shift, mass effect or ventricular enlargement. IMPRESSION: No acute findings. POS: [facility]
[2019-08-02 22:01] LABS: Bacteria/HPF None Seen HPF (None Seen); Bilirubin Negative (Negative); Blood, Urine 2+ (Negative); Clarity Clear (Clear); Glucose, Urine (Dipstick) Normal (Negative); Leukocyte Negative Leu/uL (Negative); Nitrite Negative (Negative); Protein, Urine (Dipstick) 100 mg/dL (Neg-Trace); RBC/HPF 0-3 HPF (0-3); Squamous Epithelial 0-3 HPF (0-3); Urobilinogen Normal mg/dL (Less than 2); WBC/HPF 0-3 HPF (0-3)
[2019-08-02 22:12] LABS: ALT (SGPT) 512 U/L (8-55); AST (SGOT) 867 U/L (5-34); Acetaminophen Less than 6.0 mcg/mL (10.0-30.0); Albumin 4.9 g/dL (3.5-5.0); Alcohol Less than 10 mg/dL (Less than 10); Alkaline Phosphatase 145 U/L (40-110); Anion Gap 17 mmol/L (10-20); BUN (Urea Nitrogen) 14 mg/dL (8.9-20.6); Bilirubin, Total 1.7 mg/dL (0.2-1.2); Calc. Creatinine Clearance 0 mL/min (70-130); Calcium 9.6 mg/dL (7.8-10.44); Carbon Dioxide 27 mmol/L (22-29); Chloride 95 mmol/L (98-107); Estimated GFR-MDRD 65; Glucose 94 mg/dL (70-105); Protein, Total 8.9 g/dL (6.0-8.3); Salicylate Less than 8.0 mg/dL (15.0-30.0); Sodium 137 mmol/L (136-145)
[2019-08-02 22:14] LABS: Amphetamine Not Detected (NotDetected); Benzodiazepine Screen Not Detected (NotDetected); Cocaine Metabolite Screen Not Detected (NotDetected); Medtox Reader # READER 4; Methadone Not Detected (NotDetected); Methamphetamine Not Detected (NotDetected); Opiate Screen Not Detected (NotDetected); Phencyclidine (PCP) Not Detected (NotDetected); THC/Cannabinoid Screen Not Detected (NotDetected); Tricyclic Screen Not Detected (NotDetected)
[2019-08-02 22:15] LABS: Barbiturates Screen Not Detected (NotDetected); Medtox Control Line Valid? VALID (VALID); Oxycodone Screen Not Detected (NotDetected)
[2019-08-02 22:17] LABS: Potassium 2.3 mmol/L (3.5-5.1)
[2019-08-02] MEDS ORDERED: Potassium Chloride 20 MEQ TAB ONE (22:22)
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
[2019-08-03] MEDS ORDERED: Lorazepam 2 MG/ML VIAL ONE (00:08)
[2019-08-03] MEDS ORDERED: Lorazepam 2 MG/ML VIAL SLOW IVP PRN (00:50)
[2019-08-03] MEDS ORDERED: Diazepam 10 MG/2 ML SYRINGE ONE (01:37)
[2019-08-03] MEDS: Diazepam 10 MG/2 ML SYRINGE IVP SCH ×6 (01:41→21:37)
[2019-08-03] MEDS ORDERED: Lactated Ringer's 1,000 ML IV SCH (03:19)
[2019-08-03] MEDS ORDERED: Diazepam 5 MG TAB PO SCH (05:15)
[2019-08-03] MEDS ORDERED: Diazepam 5 MG TAB ONE (05:16)
[2019-08-03] MEDS ORDERED: Ibuprofen 200 MG TAB ONE (05:17)
[2019-08-03] MEDS ORDERED: Diazepam 5 MG TAB PO PRN (05:24)
[2019-08-03] MEDS ORDERED: Thiamine HCl 200 MG/2 ML VIAL IM SCH (05:30)
--- NOTE | 2019-08-03 05:30 | PDOC.FM ---
"- Subjective Subjective: Rodo is still having tremors and hallucinations. He states he feels well, other than being hungry. - Objective MAR Reviewed: Yes Vital Signs & Weight: Weight: 82kg | BP: 160/131, Pulse: 117, Resp: 22, Temp: 98.6 (Oral), Pain: 0, O2 sat: 97 on (Room Air), Time: 08/03/2019 00:13 Result Diagrams: 08/03/19 06:42 08/03/19 06:42 Phys Exam - Physical Examination Constitutional: NAD HEENT: PERRLA, moist MMs, sclera anicteric Tongue fasciculations Neck: no JVD, supple Respiratory: no wheezing, no rales, no rhonchi, clear to auscultation bilateral Cardiovascular: RRR, no significant murmur, no rub Gastrointestinal: soft, non-tender, no distention Musculoskeletal: no edema Neurological: non-focal, moves all 4 limbs Tremor present Psychiatric: A&O x 3 Deviation from normal: Odd affect, +A/V hallucinations, tremor. Skin: no rash, cap refill <2 seconds Dx/Plan (1) Alcohol withdrawal Code(s): F10.239 - ALCOHOL DEPENDENCE WITH WITHDRAWAL, UNSPECIFIED Status: Acute (2) Auditory hallucinations Code(s): R44.0 - AUDITORY HALLUCINATIONS Status: Acute (3) Visual hallucinations Code(s): R44.1 - VISUAL HALLUCINATIONS Status: Acute (4) Alcohol abuse Code(s): F10.10 - ALCOHOL ABUSE, UNCOMPLICATED Status: Chronic - Plan Plan: Patient is a 28M with hx of alcohol abuse admitted for alcohol withdrawal and monitoring of visual/auditory hallucinations Alcohol withdrawal - Patient reportedly drinks 8-12 beers/day, stopped drinking this past Thursday and began having auditory/visual hallucinations. - Patient has clonus and mild upper extremity resting tremor on initial exam, tremor is still present. - ASE protocol in place, daily vitamin replacement, scheduled 5mg Diazepam q 4 hours. - Seroquel for agitation - pending bed placement to [facility] for increased monitoring Hypokalemia - replacing as needed. Will monitor with serial BMPs. - Mg and Phos pending H/o Visual/Auditory Hallucinations - Spent a few days at [facility] after last hospitalization, reportedly did not have any diagnoses or prescriptions - Consider starting antipsychotic and [facility] consult after patient stable from alcohol withdrawal - 24hr sitter Transaminitis - AST/ALT elevated - likely due to alcohol abuse - hepatitis panel pending - Hep A equivocal, needs repeat testing in ~7 days Alcohol use disorder - Patient will need OP follow up for substance abuse. Dispo: inpatient IMCU, likely LOS > 48 hours. Code: Full DVT ppx: lovenox Fluids: LR @ 120 PCP: None, CC"
[2019-08-03 06:55] LABS: #Eosinphils 0.1 thou/uL (0.0-0.7); #Monocytes 0.5 thou/uL (0.11-0.59); #Neutrophils 3.3 thou/uL (1.40-6.50); %Basophils 0.7 % (0.0-1.0); %Eosinophils 1.3 % (0.0-10.0); %Lymphocytes 21.1 % (21.0-51.0); %Neutrophils 66.9 % (42.0-75.0); Hemoglobin 12.6 g/dL (14.0-18.0); Mean Corpuscular HGB CONC 32.6 g/dL (32.0-36.0); Mean Corpuscular Hemoglobin 25.6 pg (27.0-31.0); Mean Corpuscular Volume 78.4 fL (78.0-98.0); Mean Platelet Volume 10.4 fL (7.4-10.4); Platelet Count 106 thou/uL (130-400); RBC Distribution Width 14.7 % (11.5-14.5); Red Blood Cell (RBC) Count 4.91 mill/uL (4.70-6.10); White Blood Cell (WBC) Count 4.9 thou/uL (4.8-10.8)
[2019-08-03 07:03] LABS: Prothrombin Time 13.6 SEC (12.0-14.7)
[2019-08-03 07:04] LABS: PTT 29.8 SEC (22.9-36.1)
[2019-08-03 07:13] LABS: Anion Gap 16 mmol/L (10-20); BUN (Urea Nitrogen) 10 mg/dL (8.9-20.6); Calc. Creatinine Clearance 0 mL/min (70-130); Calcium 8.6 mg/dL (7.8-10.44); Carbon Dioxide 23 mmol/L (22-29); Chloride 106 mmol/L (98-107); Estimated GFR-MDRD Greater than 90; Glucose 88 mg/dL (70-105); Sodium 142 mmol/L (136-145)
[2019-08-03 07:18] LABS: Potassium 2.6 mmol/L (3.5-5.1)
[2019-08-03 07:33] LABS: Syphilis Antibody Nonreactive (Nonreactive); Syphilis Antibody Index 0.07 S/CO (<1.00 Non-Reactive)
[2019-08-03 07:39] LABS: HBSAB Concentration 1.17 mIU/mL; HBSAg Index 0.94 S/CO (0-0.99); HIV (1/2) Antibody/Antigen Non-Reactive (NonReactive); HIV 1/2 INDEX 0.13 S/CO (<1.00); Hep B Core Total Ab Non-Reactive (NonReactive); Hep B Core Total Index 0.08 S/CO (0-0.79); Hep B Surf AB Non-Reactive (NonReactive); Hep B Surf Ag Non-Reactive S/CO (NonReactive); Hep C IgG Ab Non-Reactive (NonReactive); Hep C Index 0.08 S/CO (0-0.79)
[2019-08-03] MEDS ORDERED: Potassium Chloride 20 MEQ in Premix Bag 1 BAG IVPB SCH ×2 (07:45→14:00)
[2019-08-03] MEDS ORDERED: Potassium Chloride 20 MEQ TAB PO SCH (07:45)
[2019-08-03] MEDS ORDERED: Dextrose 5 %-0.45 % NaCl 1,000 ML IV SCH (07:45)
[2019-08-03 07:49] LABS: Hep A IgM S/CO 1.02 S/CO (0-0.79)
[2019-08-03 08:03] LABS: Hep A IgM AB Equivocal (NonReactive)
[2019-08-03 08:22] LABS: Magnesium 2.1 mg/dL (1.6-2.6); Phosphorus 3.2 mg/dL (2.3-4.7)
[2019-08-03] MEDS ORDERED: Thiamine 100 MG TAB PO SCH (09:00)
[2019-08-03] MEDS ORDERED: Folic Acid 1 MG TAB PO SCH ×2 (09:00)
[2019-08-03] MEDS ORDERED: Multivitamin W/ Minerals 1 TAB PO SCH (09:00)
[2019-08-03] MEDS: Enoxaparin Sodium 40 MG/0.4 ML SYRINGE SC SCH (10:56)
[2019-08-03] MEDS ORDERED: Diazepam 10 MG/2 ML SYRINGE IVP PRN ×2 (12:35→12:36)
[2019-08-03 12:43] VITALS: BMI 29.2
[2019-08-03 13:43] LABS: Anion Gap 17 mmol/L (10-20); BUN (Urea Nitrogen) 8 mg/dL (8.9-20.6); Calc. Creatinine Clearance 154 mL/min (70-130); Calcium 8.7 mg/dL (7.8-10.44); Carbon Dioxide 24 mmol/L (22-29); Chloride 101 mmol/L (98-107); Estimated GFR-MDRD Greater than 90; Glucose 86 mg/dL (70-105); Sodium 139 mmol/L (136-145)
[2019-08-03 13:44] LABS: Potassium 2.5 mmol/L (3.5-5.1)
[2019-08-03] MEDS: Multivitamins, Adult 10 ML, Folic Acid 1 MG, Thiamine HCl 100 MG in Dextrose 5 %-0.45 %... IV SCH (13:49)
[2019-08-03] MEDS ORDERED: Potassium Chloride 40 MEQ in Sodium Chloride 0.9% 250 ML 250 ML IVPB SCH ×2 (14:30→19:15)
[2019-08-03 18:31] LABS: Anion Gap 15 mmol/L (10-20); BUN (Urea Nitrogen) 8 mg/dL (8.9-20.6); Calc. Creatinine Clearance 147 mL/min (70-130); Calcium 8.6 mg/dL (7.8-10.44); Carbon Dioxide 26 mmol/L (22-29); Chloride 101 mmol/L (98-107); Estimated GFR-MDRD Greater than 90; Glucose 81 mg/dL (70-105); Sodium 139 mmol/L (136-145)
[2019-08-03 18:33] LABS: Potassium 2.8 mmol/L (3.5-5.1)
[2019-08-03] MEDS: 1/2 NS w/KCL 20 mEq 1,000 ML IV SCH (21:38)
[2019-08-04] MEDS ORDERED: Diazepam 5 MG TAB PO PRN ×2 (04:00→11:57)
[2019-08-04] MEDS: Diazepam 10 MG/2 ML SYRINGE IVP SCH ×4 (05:03→14:59)
--- NOTE | 2019-08-04 05:20 | PDOC.FM ---
- Subjective Subjective: Mr. Blount is doing well this morning, he denies auditory, visual, or tactile hallucinations. He wishes for a shower and to eat real food. - Objective MAR Reviewed: Yes Vital Signs & Weight: Vital Signs (12 hours) Temp Pulse Ox 08/04/19 03:15 97.8 F 08/03/19 23:27 98.9 F 08/03/19 20:00 100 08/03/19 19:29 98.8 F Weight Weight 79.832 kg Most Recent Monitor Data Heart Rate from ECG 76 NIBP 135/101 NIBP BP-Mean 112 Respiration from ECG 13 SpO2 97 I&O: 08/02/19 08/03/19 08/04/19 06:59 06:59 06:59 Intake Total 1800 Output Total 1350 Balance 450 Result Diagrams: 08/03/19 06:42 08/04/19 05:01 Phys Exam - Physical Examination Constitutional: NAD HEENT: PERRLA, moist MMs, sclera anicteric Neck: supple, full ROM Respiratory: no wheezing, no rales, no rhonchi, clear to auscultation bilateral Cardiovascular: RRR, no significant murmur, no rub Gastrointestinal: soft, non-tender, no distention Musculoskeletal: no edema, pulses present Neurological: non-focal, normal sensation, moves all 4 limbs Psychiatric: normal affect, A&O x 3 Deviation from normal: Denies hallucinations. Seems more alert than yesterday. Skin: no rash, normal turgor Dx/Plan (1) Alcohol withdrawal Code(s): F10.239 - ALCOHOL DEPENDENCE WITH WITHDRAWAL, UNSPECIFIED Status: Acute (2) Auditory hallucinations Code(s): R44.0 - AUDITORY HALLUCINATIONS Status: Acute (3) Visual hallucinations Code(s): R44.1 - VISUAL HALLUCINATIONS Status: Acute (4) Alcohol abuse Code(s): F10.10 - ALCOHOL ABUSE, UNCOMPLICATED Status: Chronic - Plan Plan: Patient is a 28M with hx of alcohol abuse admitted for alcohol withdrawal and monitoring of visual/auditory hallucinations Alcohol withdrawal - Patient reportedly drinks 8-12 beers/day, stopped drinking this past Thursday and began having auditory/visual hallucinations. - ASE protocol in place, daily vitamin replacement, scheduled 5mg Diazepam q 4 hours. will transition to prn today. - Seroquel BID for suspected underlying psychiatric disorder. Hypokalemia - replacing as needed. Will monitor with serial BMPs. Likely persistently low due to alcohol withdrawal and increased b-adrenergic activity. H/o Visual/Auditory Hallucinations - Spent a few days at [facility] after last hospitalization, reportedly did not have any diagnoses or prescriptions - Started Seroquel BID and will likely d/c with f/u at [facility] - 24hr sitter Transaminitis - AST/ALT elevated - likely due to alcohol abuse - hepatitis panel pending - Hep A equivocal, needs repeat testing in ~7 days Alcohol use disorder - Patient will need OP follow up for substance abuse. Dispo: inpatient IMCU, likely LOS > 48 hours. Code: Full DVT ppx: lovenox Fluids: D5 1/2 NS PCP: None, CC
[2019-08-04 05:47] LABS: ALT (SGPT) 358 U/L (8-55); AST (SGOT) 392 U/L (5-34); Alkaline Phosphatase 111 U/L (40-110); Anion Gap 12 mmol/L (10-20); BUN (Urea Nitrogen) 7 mg/dL (8.9-20.6); Bilirubin, Total 1.2 mg/dL (0.2-1.2); Calc. Creatinine Clearance 160 mL/min (70-130); Carbon Dioxide 26 mmol/L (22-29); Chloride 104 mmol/L (98-107); Estimated GFR-MDRD Greater than 90; Globulin 3.2 g/dL (2.4-3.5); Glucose 97 mg/dL (70-105); Protein, Total 7.2 g/dL (6.0-8.3); Sodium 139 mmol/L (136-145)
[2019-08-04 05:57] LABS: Phosphorus 3.5 mg/dL (2.3-4.7)
[2019-08-04] MEDS: 1/2 NS w/KCL 20 mEq 1,000 ML IV SCH ×3 (06:00→18:54)
[2019-08-04] MEDS ORDERED: Magnesium Oxide 400 MG TAB PO SCH (09:00)
[2019-08-04] MEDS ORDERED: Thiamine 100 MG TAB PO SCH (09:00)
[2019-08-04] MEDS ORDERED: FLU VACC QS2019-20(6MOS UP)/PF 60 MCG/0.5 ML SYRINGE IM ONE (09:00)
[2019-08-04] MEDS ORDERED: Recombivax (HEP-B) 5 MCG/0.5 ML VIAL IM ONE (09:13)
[2019-08-04] MEDS: Potassium Chloride 20 MEQ TAB PO SCH ×2 (11:13→19:23)
[2019-08-04] MEDS: Enoxaparin Sodium 40 MG/0.4 ML SYRINGE SC SCH (11:14)
[2019-08-04] MEDS ORDERED: Diazepam 5 MG TAB PO SCH (12:00)
[2019-08-04] MEDS: Multivitamins, Adult 10 ML, Folic Acid 1 MG, Thiamine HCl 100 MG in Dextrose 5 %-0.45 %... IV SCH (18:54)
[2019-08-05] MEDS ORDERED: Diazepam 5 MG TAB PO PRN (04:00)
[2019-08-05 05:17] LABS: ALT (SGPT) 394 U/L (8-55); AST (SGOT) 439 U/L (5-34); Albumin 4.2 g/dL (3.5-5.0); Alkaline Phosphatase 165 U/L (40-110); Anion Gap 11 mmol/L (10-20); BUN (Urea Nitrogen) 8 mg/dL (8.9-20.6); Bilirubin, Total 0.7 mg/dL (0.2-1.2); Calc. Creatinine Clearance 149 mL/min (70-130); Calcium 9.6 mg/dL (7.8-10.44); Carbon Dioxide 29 mmol/L (22-29); Chloride 106 mmol/L (98-107); Estimated GFR-MDRD Greater than 90; Globulin 3.4 g/dL (2.4-3.5); Glucose 103 mg/dL (70-105); Potassium 3.7 mmol/L (3.5-5.1); Protein, Total 7.6 g/dL (6.0-8.3); Sodium 142 mmol/L (136-145)
--- NOTE | 2019-08-05 05:40 | PDOC.FM ---
- Subjective Subjective: Mr. Blount is doing well this morning. He has not required benzos since 2300 last night. He denies hallucinations, he is up walking and showered this morning. - Objective MAR Reviewed: Yes Vital Signs & Weight: Vital Signs (12 hours) Temp Pulse Resp BP BP BP Pulse Ox 08/05/19 05:00 144/91 H 08/05/19 04:00 99.4 F 72 16 144/91 H 94 L 08/04/19 23:52 98.5 F 104 H 16 168/110 H 98 08/04/19 22:00 168/110 H 08/04/19 20:00 97 08/04/19 18:00 151/98 H 93 L Weight Weight 79.832 kg Most Recent Monitor Data Heart Rate from ECG 90 NIBP 146/106 NIBP BP-Mean 119 Respiration from ECG 18 SpO2 98 I&O: 08/03/19 08/04/19 08/05/19 06:59 06:59 06:59 Intake Total 1800 Output Total 1350 Balance 450 Result Diagrams: 08/03/19 06:42 08/05/19 04:43 Phys Exam - Physical Examination Constitutional: NAD HEENT: PERRLA, moist MMs, sclera anicteric Neck: supple, full ROM Respiratory: no wheezing, no rales, no rhonchi, clear to auscultation bilateral Cardiovascular: RRR, no significant murmur, no rub Gastrointestinal: soft, non-tender, no distention Musculoskeletal: no edema, pulses present Neurological: non-focal, normal sensation, moves all 4 limbs No tremor noted. Psychiatric: normal affect, A&O x 3 Skin: no rash, normal turgor, cap refill <2 seconds Deviation from normal: No evidence of hallucinations or psychotic behaviours. Denies SI / HI. Dx/Plan (1) Alcohol withdrawal Code(s): F10.239 - ALCOHOL DEPENDENCE WITH WITHDRAWAL, UNSPECIFIED Status: Acute (2) Auditory hallucinations Code(s): R44.0 - AUDITORY HALLUCINATIONS Status: Acute (3) Visual hallucinations Code(s): R44.1 - VISUAL HALLUCINATIONS Status: Acute (4) Alcohol abuse Code(s): F10.10 - ALCOHOL ABUSE, UNCOMPLICATED Status: Chronic - Plan Plan: Patient is a 28M with hx of alcohol abuse admitted for alcohol withdrawal and monitoring of visual/auditory hallucinations Alcohol withdrawal, resolved - ASE protocol in place, daily vitamin replacement, - Is on PRN valium now and doing much better. Patient is potentially ready for d /c depending on symptoms this morning. - Seroquel BID for suspected underlying psychiatric disorder. Elevated blood pressure, without diagnosis of HTN - patient does not take any anti-hypertensives at home currently. BP has been elevated the majority of his hospitalization, possibly likely due to alcohol withdrawal. However, withdrawal symptoms have significantly improved and his BP is still elevated. Will give one dose of Lisinopril this morning and monitor BPs. Recommend f/u with PCP on d/c for evaluation of persistent HTN. Hypokalemia, resolved H/o Visual/Auditory Hallucinations - Started Seroquel BID and will likely d/c with f/u at [facility] - 24hr sitter Transaminitis - AST/ALT elevated - likely due to alcohol abuse - hepatitis A positive - Vaccinated against Hep B Alcohol use disorder - Patient will need OP follow up for substance abuse. Dispo: inpatient IMCU, likely LOS > 48 hours. Code: Full DVT ppx: lovenox Fluids: D5 1/2 NS PCP: None, CC
[2019-08-05] MEDS ORDERED: Lisinopril 5 MG TAB PO SCH (08:15)
[2019-08-05] MEDS: Potassium Chloride 20 MEQ TAB PO SCH (08:30)
[2019-08-05] MEDS ORDERED: Thiamine 100 MG TAB PO SCH (09:00)
[2019-08-05] MEDS ORDERED: Folic Acid 1 MG TAB PO SCH (09:00)
[2019-08-05] MEDS ORDERED: Cyanocobalamin (Vitamin B-12) 1,000 MCG TAB PO SCH (09:00)
[2019-08-05] MEDS: Enoxaparin Sodium 40 MG/0.4 ML SYRINGE SC SCH (09:31)
[2019-08-05 10:30] VITALS: TEMP 98.7
[2019-08-05 13:28] VITALS: BP 140/90
--- NOTE | 2019-08-08 01:37 | PQF ---
AURY Garcia [id number] CLINICAL DOCUMENTATION CLARIFICATION FORM: POST DISCHARGE Addendum to original discharge summary date: ____ Late entry note date: __ DATE: 08/08/19 ATTN:Aury Crews Please exercise your independent, professional judgment in responding to the clarification form. Clinical indicators are provided on the bottom of this form for your review Please check appropriate box(s): [ ] Encephalopathy: Etiology: [ ] Metabolic [ ] Toxic [ ] Drug induced: [ ] Unspecified [ ] Other (please specify) [ ] Transient Alteration of Awareness [ ] Other diagnosis [ ] Unable to determine In addition, please specify: Present on Admission (POA): [ ] Yes [ ] No [ ] Unable to determine For continuity of documentation, please document condition throughout progress notes and discharge summary. Thank You. CLINICAL INDICATORS - SIGNS / SYMPTOMS / LABS Brain CT 08/02 "hallucination and altered mental status" ED Notes 08/02 "auditory and visual hallucination" HP 08/02 "patient reportedly drinks 8-12 beers/day" HP 08/02 "psychosis possibly ETOH" RISK FACTORS HP 08/02-Alcohol withdrawal HP 08/02-SI HP 08/02-Psychosis PN 08/05-Hypokalemia TREATMENTS: Collected 08/02-Brain CT NOV 02-Valium 10mg IV NOV 02-Ativan 2mg IV NOV 02-Thiamine 100mg IM NOV 02-IVF (This form is maintained as a part of the permanent medical record) 2014 [employer]. All Rights Reserved [email or web address] [not provided] MTDD
--- NOTE | 2019-08-08 01:43 | PQF ---
AURY Garcia [id number] CLINICAL DOCUMENTATION CLARIFICATION FORM: POST DISCHARGE Addendum to original discharge summary date: ____ Late entry note date: __ DATE: 08/08/19 ATTN: Aury Crews Please exercise your independent, professional judgment in responding to the clarification form. Clinical indicators are provided on the bottom of this form for your review Please check appropriate box(s): [ ] Alcohol dependence [ ] Alcohol abuse only [ ] Other diagnosis [ ] Unable to determine For continuity of documentation, please document condition throughout progress notes and discharge summary. Thank You. CLINICAL INDICATORS - SIGNS / SYMPTOMS / LABS HP 08/02 "history of alcohol abuse admitted with alcohol withdrawal" Brain CT 08/02 "hallucination and altered mental status" ED Notes 08/02 "auditory and visual hallucination" HP 08/02 "patient reportedly drinks 8-12 beers/day" 08/02 "psychosis possibly ETOH" RISKS: HP 08/02-Alcohol withdrawal HP 08/02-SI HP 08/02-Psychosis PN 08/05-Hypokalemia TREATMENT: Collected 08/02-Brain CT NOV 02-Valium 10mg IV NOV 02-Ativan 2mg IV NOV 02-Thiamine 100mg IM NOV 02-IVF (This form is maintained as a part of the permanent medical record) 2014 [employer] All Rights Reserved [email or web address] [not provided] MTDD
--- NOTE | 2019-08-08 11:13 | DIS ---
DATE OF ADMISSION: 08/02/2019 DATE OF DISCHARGE: 08/05/2019 RESIDENT: Ashleigh Soto MD ADMITTING ATTENDING: Herve Mckee MD DISCHARGE ATTENDING: David Crews MD CONSULTS: None. PROCEDURES: None. PRIMARY DIAGNOSES: Acute encephalopathy secondary to alcohol withdrawal with visual and auditory hallucinations. SECONDARY DIAGNOSES: Transaminitis, hallucinations likely secondary to unknown psychiatric condition. DISCHARGE MEDICATIONS: Multivitamin. DISCONTINUED MEDICATIONS: None. HISTORY OF PRESENT ILLNESS/HOSPITAL COURSE: Mr. Koehler is a 28-year-old male with a past medical history significant for recent hospitalization in March due to auditory and visual hallucinations and alcohol abuse. On the day of admission, he was brought in by his brother and [id number] due to increasing auditory and visual hallucinations and reported suicidal ideation from the brother. His brother states that he drinks 8 to 12 beers a day. He quit drinking on Thursday and they are unsure when the hallucinations began. Rodo, at the time of admission, was not able to give much history. Upon further questioning later in his hospital stay, he states that he had paranoid thoughts and was seeing people, who were chasing him. Rodo was admitted to the [facility], where he was placed on the ASE alcohol withdrawal protocol for alcohol withdrawal, was scheduled benzodiazepines to prevent severe withdrawal symptoms. He was also started on Seroquel for the suspicion of an underlying psychiatric illness and his labs were trended for his transaminitis. His coagulation studies were normal. His liver enzymes trended down. He is noted to be hepatitis A positive and it was recommended that he have his family vaccinated. The patient did well throughout his hospital stay. His withdrawal symptoms gradually improved and he returned to his baseline. He states that he desires to quit drinking. Once the patient was at his baseline, he did not endorse suicidal ideation. At the time of discharge the patient had no suicidal ideation. He stated he had a safe place to go home to and a plan to follow up with [facility]. DISPOSITION: Stable. DISCHARGE INSTRUCTIONS: LOCATION: Home. DIET: Regular. ACTIVITY: Ad yolanda. FOLLOWUP: Follow up with primary care physician in [facility]. Job ID: [id number] MTDD
== END 2019-08-05 14:32 | disposition home or self-care (01) | DRG 897 ==
LOC: ERS 21:04 → ERHOLD 23:44 → IMCU/EMU 08-03 00:25 → ONC 08-04 15:54
PROVIDERS: ADMIT Emergency Medicine; ATTEND Emergency Medicine
PROC: HZ2ZZZZ Detoxification Services for Substance Abuse Treatment (ICD-10-PCS; principal; 2019-08-03)
PROC: 3E02340 Introduction of Influenza Vaccine into Muscle, Percutaneous Approach (ICD-10-PCS; 2019-08-04)
PROC: 3E0234Z Introduction of Serum, Toxoid and Vaccine into Muscle, Percutaneous Approach (ICD-10-PCS; 2019-08-04)
DX: F10.232 Alcohol dependence with withdrawal with perceptual disturbance (principal); R45.851 Suicidal ideations; G93.40 Encephalopathy, unspecified; Z23 Encounter for immunization; K70.10 Alcoholic hepatitis without ascites; E87.6 Hypokalemia; Z79.899 Other long term (current) drug therapy; R03.0 Elevated blood-pressure reading, without diagnosis of hypertension; F10.251 Alcohol dependence with alcohol-induced psychotic disorder with hallucinations; K76.0 Fatty (change of) liver, not elsewhere classified
CPT/HCPCS: 36415; 70450; 80048; 80053; 80306; 80307; 81003; 81015; 83735; 84100; 85025; 85610; 85730; 86704; 86706; 86708; 86709; 86780; 86803; 87340; 87389; 90471; 90686; 90732; 90746; 93005; 96361; 96374; 96375; 96376; G0008; G0009; J1650; J2060; J3360; J3411; J3475; J3480; J3490; J7042; J7050

== ENCOUNTER 2024-08-24 11:31 | Inpatient (IN) | payer MEDICAID, SELFPAY ==
[2024-08-24 11:56] LABS: Hematocrit 59.1 % (42.0-52.0); Hemoglobin 16.5 g/dL (14.0-18.0); Mean Corpuscular HGB CONC 27.9 g/dL (32.0-36.0); Mean Corpuscular Hemoglobin 30.3 pg (27.0-31.0); Mean Corpuscular Volume 108.4 fL (78.0-98.0); Mean Platelet Volume 13.2 fL (7.4-10.4); Platelet Count 171 10x3/uL (130-400); RBC Distribution Width 13.8 % (11.5-14.5); Red Blood Cell (RBC) Count 5.45 mill/uL (4.70-6.10)
[2024-08-24] MEDS ORDERED: Ondansetron PF 4 MG/2 ML Vial ONE (12:01)
[2024-08-24] MEDS ORDERED: Thiamine HCl 200 MG/2 ML VIAL ONE (12:01)
[2024-08-24] MEDS ORDERED: Magnesium 2 GM/50 ML BAG (IN WATER) ONE (12:02)
[2024-08-24 12:29] LABS: Acetaminophen Less than 10 mcg/mL (Less than 10); Alcohol Less than 10.0 mg/dL (Less than 10); Salicylate Less than 8.0 mg/dL (Less than 8.0)
[2024-08-24 12:32] LABS: Troponin I 0.036 ng/mL (< 0.028)
[2024-08-24 12:37] LABS: Alcohol Less than 10.0 mg/dL (Less than 10)
[2024-08-24 12:40] LABS: CK (CPK) 460 U/L (30-200); Phosphorus 4.4 mg/dL (2.3-4.7)
[2024-08-24 12:45] LABS: #Basophils Less than 0.03 10x3/uL (0.0-0.2); #Eosinophils Less than 0.03 10x3/uL (0.0-0.7); %Lymphocytes 6.3 % (21.0-51.0); %Monocytes 3.7 % (0.0-10.0); %Neutrophils 89.6 % (42.0-75.0)
[2024-08-24 12:46] LABS: Macrocytosis SLIGHT = 6-15 cells HPF (0-5); Platelet Adequacy Comment Platelets Normal; Tear Drops SLIGHT = 2-5 cells HPF (0-1)
[2024-08-24 12:47] LABS: ALT (SGPT) 135 U/L (8-55); AST (SGOT) 61 U/L (5-34); Albumin 4.2 g/dL (3.5-5.0); Alkaline Phosphatase 160 U/L (40-110); Anion Gap 41 mmol/L (10-20); BUN (Urea Nitrogen) 33 mg/dL (8.9-20.6); Bilirubin, Total 0.9 mg/dL (0.2-1.2); Calc. Creatinine Clearance 0 mL/min (70-130); Calcium 11.4 mg/dL (7.8-10.44); Carbon Dioxide 10 mmol/L (22-29); Chloride 98 mmol/L (98-107); Estimated GFR 18; Globulin 5.3 g/dL (2.4-3.5); Glucose 1672 mg/dL (70-105); Protein, Total 9.5 g/dL (6.0-8.3); Sodium 146 mmol/L (136-145)
[2024-08-24 12:48] LABS: Analyzer IN Cardio ER; Base Excess -17.6 mEq/L (-2.0 to +3.0); Calcium, Ionized (venous) 1.47 mmol/L (1.16-1.32); Chloride (VBG) 103 mmol/L (98-106); Hematocrit-VBG 47 % (42.0-52.0); Hemoglobin (Hb) 16.1 g/dL (13.2-17.3); Potassium (VBG) 3.27 mmol/L (3.70-5.30)
[2024-08-24 12:53] LABS: Actual Bicarbonate (HCO3v) 10.1 mEq/L (22-28); Sodium 158 mmol/L (133-146); pH (venous) 7.137 (7.32-7.43)
[2024-08-24] MEDS ORDERED: Potassium Chloride 20 MEQ TAB ONE ×2 (12:56→15:19)
[2024-08-24] MEDS ORDERED: Sodium Bicarb 50 MEQ/50 ML Abboject 8.4% SYRINGE ONE ×2 (12:57→15:54)
[2024-08-24] MEDS ORDERED: INSULIN REGULAR IN 0.9 % NACL 100 ML ONE (12:57)
[2024-08-24 13:03] LABS: Lipase 2875 U/L (8-78)
[2024-08-24] MEDS ORDERED: Sodium Chloride 0.9% 1,000 ML IV PRN ×4 (14:44)
[2024-08-24] MEDS ORDERED: NS 0.9% w/ 20 MEQ KCL 1,000 ML IV PRN (14:44)
[2024-08-24] MEDS ORDERED: Ondansetron ODT 4 MG TAB PO PRN (14:44)
[2024-08-24] MEDS ORDERED: Ondansetron PF 4 MG/2 ML Vial IVP PRN (14:44)
[2024-08-24] MEDS ORDERED: Dextrose 50% Abboject 50 ML SYRINGE SLOW IVP PRN (14:44)
[2024-08-24] MEDS ORDERED: D5 1/2 NS w/20 mEq KCL 1,000 ML IV PRN (14:44)
[2024-08-24] MEDS ORDERED: Lorazepam 1 MG TAB PO PRN (14:44)
[2024-08-24] MEDS ORDERED: Lorazepam 2 MG/ML VIAL IM PRN (14:44)
[2024-08-24] MEDS ORDERED: Electrolyte Replacement Protocol 1 EACH FS SCH (14:45)
[2024-08-24 14:56] LABS: Anion Gap 31 mmol/L (10-20); BUN (Urea Nitrogen) 33 mg/dL (8.9-20.6); Calc. Creatinine Clearance 0 mL/min (70-130); Calcium 9.1 mg/dL (7.8-10.44); Carbon Dioxide 11 mmol/L (22-29); Chloride 110 mmol/L (98-107); Estimated GFR 23; Glucose 1491 mg/dL (70-105); Potassium 2.8 mmol/L (3.5-5.1); Sodium 149 mmol/L (136-145)
[2024-08-24] MEDS ORDERED: Potassium Chloride 20 MEQ (100 mL) BAG ONE (15:19)
[2024-08-24] MEDS ORDERED: NOREPINEPHRINE 8 MG/250 ML-D5W 250 ML ONE (15:25)
[2024-08-24 15:56] LABS: Lactic Acid 6.91 mmol/L (0.5-2.2)
[2024-08-24] MEDS: Potassium Chloride 20 MEQ in Premix 1 BAG IVPB SCH (16:02)
[2024-08-24] MEDS ORDERED: Acetaminophen 500 MG TAB ONE (16:13)
[2024-08-24 16:27] LABS: Actual Bicarbonate (HCO3v) 19.1 mEq/L (22-28); Analyzer IN Cardio ER; Base Excess -7.8 mEq/L (-2.0 to +3.0); Calcium, Ionized (venous) 1.27 mmol/L (1.16-1.32); Chloride (VBG) 107 mmol/L (98-106); Hematocrit-VBG 43 % (42.0-52.0); Hemoglobin (Hb) 14.7 g/dL (13.2-17.3); Potassium (VBG) 3.07 mmol/L (3.70-5.30); pH (venous) 7.255 (7.32-7.43)
[2024-08-24 16:34] LABS: Sodium 156 mmol/L (133-146)
[2024-08-24 16:41] LABS: Troponin I 0.121 ng/mL (< 0.028)
[2024-08-24 16:49] LABS: Glucose 1445 mg/dL (70-105)
[2024-08-24 17:57] LABS: Anion Gap 23 mmol/L (10-20); BUN (Urea Nitrogen) 38 mg/dL (8.9-20.6); Calc. Creatinine Clearance 0 mL/min (70-130); Calcium 9.1 mg/dL (7.8-10.44); Carbon Dioxide 18 mmol/L (22-29); Chloride 112 mmol/L (98-107); Estimated GFR 17; Glucose 1438 mg/dL (70-105); Potassium 3.4 mmol/L (3.5-5.1); Sodium 150 mmol/L (136-145)
[2024-08-24] MEDS: NS 0.9% w/ 20 MEQ KCL 1,000 ML IV PRN (18:32)
[2024-08-24] MEDS: Thiamine HCl 200 MG/2 ML VIAL SLOW IVP SCH (18:33)
[2024-08-24] MEDS: Electrolyte Replacement Protocol 1 EACH IVPB ONE (18:33)
[2024-08-24] MEDS: cefTRIAXone\\ROCEPHIN 2 GM in Sodium Chloride 0.9% 100 ML IVPB SCH (18:33)
[2024-08-24] MEDS: Sodium Bicarb 50 MEQ/50 ML Abboject 8.4% SYRINGE IVP SCH (18:33)
[2024-08-24] MEDS: Pantoprazole 40 MG VIAL IVP SCH (18:36)
[2024-08-24] MEDS: Lactated Ringer's 1,000 ML IV SCH (18:41)
[2024-08-24] MEDS ORDERED: Vasopressin 20 UNITS in Sodium Chloride 0.9% 50 ML IV PRN (18:50)
[2024-08-24] MEDS: Vasopressin In 0.9 % NaCl 40 UNIT in Premix 1 BAG IV PRN (19:10)
[2024-08-24 19:51] LABS: Hematocrit 41.8 % (42.0-52.0); Hemoglobin 12.6 g/dL (14.0-18.0)
[2024-08-24 20:06] LABS: Hemoglobin A1c Greater than 14.0 % (4.0-6.0)
[2024-08-24 20:15] VITALS: BMI 34.9
[2024-08-24 20:15] LABS: Glucose 1361 mg/dL (70-105); Phosphorus Less than 0.7 mg/dL (2.3-4.7); Troponin I 0.222 ng/mL (< 0.028)
[2024-08-24] MEDS ORDERED: Vancomycin Dose by Levels Sliding Scale (Wt 71-99) FS SCH (20:30)
[2024-08-24 21:07] LABS: Anion Gap 19 mmol/L (10-20); BUN (Urea Nitrogen) 27 mg/dL (8.9-20.6); Calc. Creatinine Clearance 50 mL/min (70-130); Calcium 6.4 mg/dL (7.8-10.44); Carbon Dioxide 13 mmol/L (22-29); Chloride 121 mmol/L (98-107); Estimated GFR 32; Glucose 921 mg/dL (70-105); Potassium 2.5 mmol/L (3.5-5.1); Sodium 150 mmol/L (136-145)
[2024-08-24] MEDS: Potassium Phosphate 30 MMOL in Sodium Chloride 0.9% 250 ML 250 ML IVPB SCH (21:11)
[2024-08-24] MEDS: Vancomycin (BATCH) 2 GM in Premix 1 BAG IVPB SCH (21:16)
[2024-08-24] MEDS: CALCIUM GLUC 1 GM/NS 50 ML 1 GM in Premix 1 BAG IVPB SCH (21:40)
[2024-08-24] MEDS: Potassium Chloride 40 MEQ in Premix 1 BAG IVPB PRN (22:04)
[2024-08-24 22:24] LABS: Glucose 1133 mg/dL (70-105)
[2024-08-24] MEDS: Sodium Bicarbonate 150 MEQ in Dextrose 5% in Water 1,000 ML IV SCH (22:57)
[2024-08-24 23:30] LABS: Bacteria/HPF 1+ HPF (None Seen); Bilirubin Negative (Negative); Blood, Urine 3+ (Negative); Clarity Extra Turbid (Clear); Glucose, Urine (Dipstick) Greater than 1000 mg/dL (Negative); Ketone, Urine Trace mg/dL (Negative); Leukocyte Negative Leu/uL (Negative); Nitrite Negative (Negative); Protein, Urine (Dipstick) 300 mg/dL (Neg-Trace); RBC/HPF 21-50 HPF (0-3); Specific Gravity, Urine 1.026 (1.002-1.036); Urobilinogen Normal mg/dL (Less than 2); WBC/HPF Greater than 50 HPF (0-3)
[2024-08-24] MEDS: Hydrocortisone Sod Succ/PF 100 mg/2 ml Vial IVP SCH (23:33)
[2024-08-24] MEDS: DOPamine 400 MG/D5W 250 ML 250 ML IVPB SCH (23:34)
[2024-08-24 23:40] LABS: Actual Bicarbonate (HCO3a) 19.8 mEq/L (22-28); Base Excess (BEa) -8.6 mEq/L (-2.0 to +3.0); CO2 Tension 53.5 mmHg (35.0-45.0); Calcium, Ionized (arterial) 1.26 mmol/L (1.12-1.30); Carboxyhemoglobin (COHb) 0.4 gm% (0.0-3.0); Hematocrit-ABG 38 % (42.0-52.0); Hemoglobin (Hb) 12.8 g/dL (14.0-18.0); Potassium - ABG Lab 4.21 mmol/L (3.70-5.30)
[2024-08-24 23:41] LABS: pH, Arterial 7.187 (7.35-7.45)
[2024-08-24 23:42] LABS: ALV-art Gradient 142.505 mmHg (0-20); O2 Tension (PaO2), arterial 47.3 mmHg (80.0-100.0); Puncture Site Arterial Line
[2024-08-25] MEDS ORDERED: EPINEPHrine 4 MG in Dextrose 5% in Water 250 ML IV SCH (00:45)
[2024-08-25 00:57] LABS: Glucose 1093 mg/dL (70-105)
[2024-08-25 01:15] LABS: Chloride 119 mmol/L (98-107)
[2024-08-25 01:29] LABS: Anion Gap 24 mmol/L (10-20); BUN (Urea Nitrogen) 39 mg/dL (8.9-20.6); Calc. Creatinine Clearance 27 mL/min (70-130); Calcium 8.4 mg/dL (7.8-10.44); Carbon Dioxide 16 mmol/L (22-29); Estimated GFR 15; Glucose 1014 mg/dL (70-105); Potassium 4.7 mmol/L (3.5-5.1); Sodium 154 mmol/L (136-145)
[2024-08-25] MEDS: Phenylephrine 40 MG/NS 250 ML 250 ML IVPB SCH (01:33)
[2024-08-25] MEDS: Albumin 25% 25 GM (100 mL) BOT IVPB SCH ×2 (01:34→07:07)
[2024-08-25] MEDS: NOREPINEPHRINE 8 MG/250 ML-D5W 250 ML IVPB SCH (01:35)
[2024-08-25 02:39] LABS: Glucose 949 mg/dL (70-105)
[2024-08-25 03:22] LABS: Troponin I 0.296 ng/mL (< 0.028)
[2024-08-25 03:54] LABS: Lactic Acid 7.09 mmol/L (0.5-2.2)
[2024-08-25 03:57] LABS: INR-International Normal Ratio 1.1; PTT 36.5 sec (22.9-36.1); Prothrombin Time 14.7 sec (12.0-14.7)
[2024-08-25 04:01] LABS: Phosphorus 1.1 mg/dL (2.3-4.7)
[2024-08-25 04:12] LABS: Anion Gap 22 mmol/L (10-20); BUN (Urea Nitrogen) 41 mg/dL (8.9-20.6); Calc. Creatinine Clearance 27 mL/min (70-130); Carbon Dioxide 15 mmol/L (22-29); Chloride 119 mmol/L (98-107); Estimated GFR 15; Potassium 4.2 mmol/L (3.5-5.1); Sodium 152 mmol/L (136-145)
[2024-08-25 04:15] LABS: HIV (1/2) Antibody/Antigen NONREACTIVE (NonReactive); HIV 1/2 INDEX 0.06 S/CO (<1.00)
[2024-08-25] MEDS: Potassium Phosphate 22 MMOL in Sodium Chloride 0.9% 250 ML 250 ML IVPB SCH (04:36)
[2024-08-25 04:40] LABS: Base Excess -13.8 mEq/L (-2.0 to +3.0); Calcium, Ionized (venous) 1.17 mmol/L (1.16-1.32); Chloride (VBG) 116 mmol/L (98-106); Hematocrit-VBG 34 % (42.0-52.0); Hemoglobin (Hb) 11.7 g/dL (13.2-17.3); Potassium (VBG) 4.26 mmol/L (3.70-5.30)
[2024-08-25 04:41] LABS: Actual Bicarbonate (HCO3v) 14.2 mEq/L (22-28); Sodium 152 mmol/L (133-146); pH (venous) 7.159 (7.32-7.43)
[2024-08-25] MEDS: Sodium Chloride 0.45% 1,000 ML IV SCH (05:00)
[2024-08-25 05:17] LABS: Glucose 922 mg/dL (70-105)
[2024-08-25 05:50] LABS: ALT (SGPT) 89 U/L (8-55); AST (SGOT) 170 U/L (5-34); Albumin 2.8 g/dL (3.5-5.0); Alkaline Phosphatase 80 U/L (40-110); Anion Gap 20 mmol/L (10-20); BUN (Urea Nitrogen) 40 mg/dL (8.9-20.6); Bilirubin, Total 0.6 mg/dL (0.2-1.2); Calc. Creatinine Clearance 27 mL/min (70-130); Carbon Dioxide 14 mmol/L (22-29); Chloride 120 mmol/L (98-107); Estimated GFR 15; Globulin 3.2 g/dL (2.4-3.5); Phosphorus 0.8 mg/dL (2.3-4.7); Potassium 4.2 mmol/L (3.5-5.1); Sodium 150 mmol/L (136-145)
[2024-08-25 05:51] LABS: Magnesium 2.4 mg/dL (1.6-2.6)
[2024-08-25 06:13] LABS: Glucose 841 mg/dL (70-105); Lipase 1068 U/L (8-78)
[2024-08-25 07:16] LABS: Glucose 745 mg/dL (70-105)
[2024-08-25] MEDS: INSULIN REGULAR IN 0.9 % NACL 100 ML IVPB SCH (07:28)
[2024-08-25 08:02] LABS: Anion Gap 22 mmol/L (10-20); BUN (Urea Nitrogen) 38 mg/dL (8.9-20.6); Calc. Creatinine Clearance 32 mL/min (70-130); Calcium 7.6 mg/dL (7.8-10.44); Carbon Dioxide 12 mmol/L (22-29); Chloride 121 mmol/L (98-107); Estimated GFR 16; Glucose 683 mg/dL (70-105); Potassium 5.1 mmol/L (3.5-5.1); Sodium 150 mmol/L (136-145)
[2024-08-25] MEDS: Etomidate 40 MG (20 mL) VIAL ONE (08:06)
[2024-08-25] MEDS: fentaNYL 50 mcg/mL 1 mL Vial ONE (08:07)
[2024-08-25] MEDS: Rocuronium Bromide 10 MG/ML (10ML VIAL) ONE (08:09)
[2024-08-25] MEDS: Sodium Bicarb 50 MEQ/50 ML Abboject 8.4% SYRINGE ONE ×2 (08:48→08:49)
[2024-08-25 08:50] LABS: Glucose 640 mg/dL (70-105)
[2024-08-25 08:55] LABS: Actual Bicarbonate (HCO3a) 17.8 mEq/L (22-28); Base Excess (BEa) -11.5 mEq/L (-2.0 to +3.0); Calcium, Ionized (arterial) 1.08 mmol/L (1.12-1.30); Carboxyhemoglobin (COHb) 0.2 gm% (0.0-3.0); Hematocrit-ABG 32 % (42.0-52.0); Hemoglobin (Hb) 10.9 g/dL (14.0-18.0); Potassium - ABG Lab 4.85 mmol/L (3.70-5.30)
[2024-08-25 08:56] LABS: O2 Tension (PaO2), arterial 55.1 mmHg (80.0-100.0); pH, Arterial 7.119 (7.35-7.45)
[2024-08-25 08:57] LABS: Puncture Site Arterial Line
[2024-08-25] MEDS ORDERED: Vancomycin (BATCH) 1.75 GM in Premix 1 BAG IVPB SCH (09:00)
[2024-08-25] MEDS ORDERED: Propofol BOLUS 1,000 MG/100 ML VIAL IV PRN (09:00)
[2024-08-25] MEDS ORDERED: DISCONTINUE PREVIOUS NARCOTIC PAIN MEDICATIONS AND BENZODIAZEPINES FS SCH (09:00)
[2024-08-25] MEDS ORDERED: Fentanyl BOLUS 250 ML IVPB PRN (09:00)
[2024-08-25] MEDS ORDERED: Propofol 1,000 MG/100 ML VIAL IV PRN (09:00)
[2024-08-25] MEDS ORDERED: Ventilator Sedation Protocol 1 EACH FS SCH (09:00)
[2024-08-25] MEDS ORDERED: Morphine 2 MG/ML VIAL SLOW IVP PRN (09:00)
[2024-08-25] MEDS: Pantoprazole 40 MG VIAL IVP SCH (09:14)
[2024-08-25 09:35] LABS: Hemoglobin 10.3 g/dL (14.0-18.0); Mean Corpuscular HGB CONC 31.2 g/dL (32.0-36.0); Mean Corpuscular Hemoglobin 30.7 pg (27.0-31.0); Mean Corpuscular Volume 98.2 fL (78.0-98.0); Mean Platelet Volume 13.8 fL (7.4-10.4); Platelet Count 54 10x3/uL (130-400); RBC Distribution Width 14.3 % (11.5-14.5); Red Blood Cell (RBC) Count 3.36 mill/uL (4.70-6.10)
[2024-08-25 09:51] LABS: Glucose 615 mg/dL (70-105)
[2024-08-25 10:07] LABS: Anion Gap 21 mmol/L (10-20); BUN (Urea Nitrogen) 40 mg/dL (8.9-20.6); Calc. Creatinine Clearance 31 mL/min (70-130); Calcium 7.3 mg/dL (7.8-10.44); Carbon Dioxide 15 mmol/L (22-29); Chloride 120 mmol/L (98-107); Estimated GFR 15; Glucose 615 mg/dL (70-105); Sodium 151 mmol/L (136-145)
[2024-08-25] MEDS: Fentanyl CADD 100 ML IV SCH (10:16)
[2024-08-25 10:25] LABS: Band 28 % (5-11); Dohle Bodies SLIGHT; Large Platelets 3.7 % (0-5); Lymphocytes 4 % (21-51); Metamyelocyte 18 % (0-0); Myelocyte 6 % (0-0); Neutrophil 43 % (42-75); Nucleated RBC (Manual Ct) 2 % (0); Platelet Adequacy Comment Platelets Decreased; Polychromasia SLIGHT = 2-3 cells HPF (0-2); Reflex for Review?? YES; Smudge Cells 9.2 %; Vacuoles SLIGHT
[2024-08-25 10:51] LABS: Glucose 605 mg/dL (70-105)
[2024-08-25] MEDS: Multivit, Therapeutic 1 TAB PO SCH (10:51)
[2024-08-25] MEDS: Lorazepam 2 MG/ML VIAL SLOW IVP PRN ×2 (10:52→21:06)
[2024-08-25] MEDS: Folic Acid 1 MG TAB PO SCH (10:52)
[2024-08-25] MEDS: FLU (Fluarix Triv) TS24-25(6MOS UP)/PF 45 MCG/0.5 ML Syringe IM ONE (10:52)
[2024-08-25 11:14] LABS: Actual Bicarbonate (HCO3a) 16.7 mEq/L (22-28); Base Excess (BEa) -10.9 mEq/L (-2.0 to +3.0); CO2 Tension 44.6 mmHg (35.0-45.0); Calcium, Ionized (arterial) 1.03 mmol/L (1.12-1.30); Carboxyhemoglobin (COHb) 0.1 gm% (0.0-3.0); Hematocrit-ABG 32 % (42.0-52.0); Hemoglobin (Hb) 10.9 g/dL (14.0-18.0); Potassium - ABG Lab 4.83 mmol/L (3.70-5.30)
[2024-08-25 11:16] LABS: O2 Tension (PaO2), arterial 58.5 mmHg (80.0-100.0); Puncture Site Arterial Line; pH, Arterial 7.192 (7.35-7.45)
[2024-08-25 11:29] LABS: Platelet Count 44 10x3/uL (130-400)
[2024-08-25] MEDS: Acetaminophen 650 MG/20.3 ML UDCUP PO PRN (11:29)
[2024-08-25] MEDS: Piperacillin/Tazobactam 3.375 GM in Sodium Chloride 0.9% 100 ML IVPB SCH ×2 (11:30→15:19)
[2024-08-25 11:35] LABS: HBSAB Concentration Less than 8.00 mIU/mL; HBsAg Index 0.76 S/CO (0-0.99); Hep B Core Total Ab NONREACTIVE (NonReactive); Hep B Core Total Index 0.12 S/CO (0-0.79); Hep B Surf AB NONREACTIVE (NonReactive); Hep B Surf Ag NONREACTIVE S/CO (NonReactive); Hep C IgG Ab NONREACTIVE S/CO (NonReactive); Hep C Index 0.09 S/CO (0-0.79)
[2024-08-25 11:41] LABS: Fibrinogen 556 mg/dL (253-463)
[2024-08-25 11:42] LABS: INR-International Normal Ratio 1.2; Prothrombin Time 15.3 sec (12.0-14.7)
[2024-08-25 11:50] LABS: D-Dimer Test 2.58 mcg/mL (0.27-0.43)
[2024-08-25 11:53] LABS: Glucose 598 mg/dL (70-105)
[2024-08-25 12:51] LABS: Glucose 576 mg/dL (70-105)
[2024-08-25 13:15] LABS: Phosphorus 1.9 mg/dL (2.3-4.7)
[2024-08-25] MEDS ORDERED: Vancomycin Dialysis Sliding Scale (Wt > 99) FS SCH (13:15)
[2024-08-25 13:58] LABS: Hep B Core Total Index 0.14 S/CO (0-0.79); Hep C Index 0.09 S/CO (0-0.79)
[2024-08-25 14:03] LABS: Anion Gap 22 mmol/L (10-20); BUN (Urea Nitrogen) 34 mg/dL (8.9-20.6); Calc. Creatinine Clearance 36 mL/min (70-130); Calcium 7.4 mg/dL (7.8-10.44); Carbon Dioxide 15 mmol/L (22-29); Chloride 119 mmol/L (98-107); Estimated GFR 18; Glucose 447 mg/dL (70-105); Potassium 4.5 mmol/L (3.5-5.1); Sodium 151 mmol/L (136-145)
[2024-08-25 14:29] LABS: HBsAg Index 0.68 S/CO (0-0.99); Hep B Surf Ag NONREACTIVE S/CO (NonReactive)
[2024-08-25 14:44] LABS: HBSAB Concentration Less than 8.00 mIU/mL; Hep B Core Total Ab NONREACTIVE (NonReactive); Hep B Surf AB NONREACTIVE (NonReactive); Hep C IgG Ab NONREACTIVE S/CO (NonReactive)
[2024-08-25] MEDS ORDERED: Lorazepam 1 MG TAB PO PRN (14:50)
[2024-08-25] MEDS: Dextrose 5 %-0.45 % NaCl 1,000 ML IV PRN (16:56)
[2024-08-25 17:24] LABS: Influenza A by NAA Not Detected (NotDetected); Influenza B by NAA Not Detected (NotDetected); SARS-CoV-2 NAA Rapid Test Not Detected (NotDetected)
[2024-08-25 17:56] LABS: Anion Gap 15 mmol/L (10-20); BUN (Urea Nitrogen) 16 mg/dL (8.9-20.6); Calc. Creatinine Clearance 73 mL/min (70-130); Calcium 5.4 mg/dL (7.8-10.44); Carbon Dioxide 14 mmol/L (22-29); Chloride 122 mmol/L (98-107); Estimated GFR 43; Glucose 178 mg/dL (70-105); Potassium 2.8 mmol/L (3.5-5.1); Sodium 148 mmol/L (136-145)
[2024-08-25 18:30] VITALS: BP 84/62
[2024-08-25 19:06] LABS: Vancomycin, Trough 14.8 ug/mL
[2024-08-25] MEDS: Vancomycin 1 GM in Premix 1 BAG IVPB SCH (20:07)
[2024-08-25] MEDS ORDERED: CALCIUM GLUC 1 GM/NS 50 ML 1 GM in Premix 1 BAG IVPB SCH (20:15)
[2024-08-25] MEDS ORDERED: Morphine 4 MG/ML VIAL SLOW IVP PRN (20:20)
[2024-08-25] MEDS ORDERED: Lorazepam 2 MG/ML VIAL SLOW IVP SCH (21:00)
[2024-08-25 22:47] VITALS: TEMP 103
[2024-08-26] MEDS ORDERED: Lorazepam 1 MG TAB PO PRN (14:50)
[2024-08-27] MEDS ORDERED: Lorazepam 0.5 MG TAB PO PRN (14:50)
[2024-08-27] MEDS ORDERED: Thiamine 100 MG TAB PO SCH (15:00)
== END 2024-08-25 21:25 | disposition expired | DRG 438 ==
LOC: ERS 11:31 → ERHOLD 14:36 → CCU 16:55
PROVIDERS: ADMIT Student in an Organized Health Care Education/Training Program; ATTEND Student in an Organized Health Care Education/Training Program
PROC: 0B918ZZ Drainage of Trachea, Via Natural or Artificial Opening Endoscopic (ICD-10-PCS; principal; 2024-08-25)
PROC: 4A033R1 Measurement of Arterial Saturation, Peripheral, Percutaneous Approach (ICD-10-PCS; 2024-08-25)
PROC: 06HY33Z Insertion of Infusion Device into Lower Vein, Percutaneous Approach (ICD-10-PCS; 2024-08-25)
PROC: 5A09357 Assistance with Respiratory Ventilation, Less than 24 Consecutive Hours, Continuous Positive Airway Pressure (ICD-10-PCS; 2024-08-25)
PROC: 5A1935Z Respiratory Ventilation, Less than 24 Consecutive Hours (ICD-10-PCS; 2024-08-25)
DX: K85.20 Alcohol induced acute pancreatitis without necrosis or infection (principal); E11.10 Type 2 diabetes mellitus with ketoacidosis without coma; G93.41 Metabolic encephalopathy; J96.01 Acute respiratory failure with hypoxia; N18.6 End stage renal disease; E87.1 Hypo-osmolality and hyponatremia; N17.9 Acute kidney failure, unspecified; E87.0 Hyperosmolality and hypernatremia; K76.0 Fatty (change of) liver, not elsewhere classified; R57.1 Hypovolemic shock; F10.10 Alcohol abuse, uncomplicated; D72.819 Decreased white blood cell count, unspecified; E87.6 Hypokalemia; D63.1 Anemia in chronic kidney disease; Z51.5 Encounter for palliative care; Z79.899 Other long term (current) drug therapy
CPT/HCPCS: 36415; 36416; 36556; 51702; 71045; 74176; 80053; 80202; 80307; 81001; 82010; 82140; 82550; 82805; 83036; 83605; 83615; 83690; 83735; 84100; 84145; 84443; 84484; 85025; 85049; 85060; 85300; 85362; 85384; 85610; 85730; 86704; 86706; 86803; 87040; 87086; 87340; 87389; 93005; 94002; 94760; 96361; 96365; 96366; 96367; 96374; 96375; 99292; J0613; J0696; J1265; J1642; J1720; J1815; J2060; J2405; J2470; J2543; J3010; J3370; J3411; J3475; J3480; J7042; J7050; J7120; P9047